=== PATIENT | female | born 1950 | race Caucasian/White ===

== ENCOUNTER → 2016-09-27 | Outpatient (CLI) | payer MEDICARE ==
[~2016-09-27] VITALS: Ht 165.2 cm; Wt 80.2 kg
[~2016-09-27] MED LIST: BASAGLAR K100 UNIT/1 SQ; BENADRYL25 M2 PO; BENTYL 20MG20 MG/TAB PO; CALCIUM CARBON650 M2 PO; CIPRO 500MG TA500 MG PO; CULTURELLE10 Billion PO; DARVOCET N 101 UDTAB PO; DICYCLOMINE20 MG PO; DOMPERIDONE10 MG/CAP PO; DOXYCYCLINE 10100 MG PO; EFFEXOR-XR150 MG PO; ELAVIL100 MG PO; FEMARA PO; FENTANYL 75MCG TD; FLEXERIL 1010 MG/TAB PO; GABAPENTIN TAB600 MG PO; GLUCOPHAGE XR500 M1 PO; HCTZ 25MG TAB25 MG PO; LYRICA 150MG C150 MG PO; MULTIPLE VITAMI1 CAP PO; NORCO 325 MG-7.1 TAB PO; OMEGA-3 FISH1000 MG PO; PHARMASSURE ZIN50 MG PO; PHENERGAN 25 TA25 MG PO; PRINIVIL5 MG PO; PROVENTIL0.09 MG/A1 IH; TAMOXIFEN CITRA20 MG PO; TOPROL XL100 MG PO; TYLENOL 500MG500 MG PO; TYLENOL PM EXT240 ML PO; TYLENOL PM EXTR1 TA1 PO; VITAMIN D31000 IU PO; XIFAXAN200 MG PO; ZOMETA4 MG/100 M IV; [UNRECOGNIZED DRUG - CODE] PO; [UNRECOGNIZED DRUG - OTHER] PO
[2016-09-27 06:56] VITALS: BP 142/71; PULSE 65
[2016-09-27 07:53] VITALS: BP 134/61; PULSE 67
[2016-09-27 07:54] VITALS: BP 141/66; PULSE 71
[2016-09-27 07:55] VITALS: BP 142/56; PULSE 70
[2016-09-27 07:56] VITALS: BP 140/72; PULSE 71
== END ==
LOC: COL.CARD 05:45
DX: R07.9 Chest pain, unspecified (principal); E11.9 Type 2 diabetes mellitus without complications; C79.81 Secondary malignant neoplasm of breast; C80.1 Malignant (primary) neoplasm, unspecified; I10 Essential (primary) hypertension; I49.9 Cardiac arrhythmia, unspecified
CPT/HCPCS: A9502; J2785

== ENCOUNTER → 2016-10-12 | Outpatient (CLI) | payer MEDICARE, BC | LOC: COL.RAD 11:00 | DX: R27.0 Ataxia, unspecified (principal); Z85.3 Personal history of malignant neoplasm of breast | CPT/HCPCS: Q9967 ==

== ENCOUNTER 2016-10-15 10:51 | Outpatient (CLI) | payer MEDICARE, BC ==
[2005-09-04 11:41] VITALS: BP 111/65
[2016-10-15] VITALS (8 sets, daily range): BP systolic 108–161; BP diastolic 49–85; PULSE 60–71; TEMP 99.3
[~2016-10-15] VITALS: Ht 165.1 cm; Wt 92.0 kg
[~2016-10-15 10:51] MED LIST changes: -FENTANYL 75MCG TD; -[UNRECOGNIZED DRUG - CODE] PO
[2016-10-15 13:43] LABS: CEREBROSPINAL TUBE #4; CSF APPEARANCE CLEAR; CSF COLOR COLORLESS
== END 2016-10-15 14:25 | disposition home or self-care (01) ==
LOC: COL.RAD 10:51
PROVIDERS: Family Medicine
DX: C50.919 Malignant neoplasm of unspecified site of unspecified female breast (principal); R27.0 Ataxia, unspecified; Z97.8 Presence of other specified devices

== ENCOUNTER 2016-10-25 08:35 | Outpatient (CLI) | payer MEDICARE ==
[2005-09-04 11:41] VITALS: BP 111/65
[~2016-10-25] VITALS: Ht 165.1 cm; Wt 94.1 kg
[2016-10-25] VITALS (8 sets, daily range): BP systolic 110–136; BP diastolic 57–67; PULSE 57–70
[2016-10-25] MEDS ORDERED: [UNRECOGNIZED DRUG - CODE] PO (09:01)
[2016-10-25] MEDS ORDERED: FENTANYL 75MCG TD (09:02)
== END 2016-10-25 13:20 | disposition home or self-care (01) ==
LOC: COL.RAD 08:35
DX: C79.81 Secondary malignant neoplasm of breast (principal); C80.1 Malignant (primary) neoplasm, unspecified

== ENCOUNTER → 2017-06-03 | Outpatient (CLI) | payer MEDICARE, BC ==
[~2017-06-03] MED LIST changes: +FENTANYL 75MCG TD; +[UNRECOGNIZED DRUG - CODE] PO
== END ==
LOC: COL.RAD 08:00
DX: C50.411 Malignant neoplasm of upper-outer quadrant of right female breast (principal); J34.89 Other specified disorders of nose and nasal sinuses; E11.9 Type 2 diabetes mellitus without complications; R41.3 Other amnesia
CPT/HCPCS: Q9967

== ENCOUNTER → 2017-07-09 | Outpatient (CLI) | payer MEDICARE, BC | LOC: COL.VAS 14:16 | DX: M79.89 Other specified soft tissue disorders (principal); Z85.3 Personal history of malignant neoplasm of breast; Z90.10 Acquired absence of unspecified breast and nipple; I82.409 Acute embolism and thrombosis of unspecified deep veins of unspecified lower extremity ==

== ENCOUNTER 2017-08-09 14:00 | Outpatient (RCR) | payer MEDICARE, BC | END 2017-08-13 | LOC: WSPT | DX: G62.9 Polyneuropathy, unspecified (principal); G11.9 Hereditary ataxia, unspecified; Z91.81 History of falling | CPT/HCPCS: G8978-GP; G8979-GP; G8980-GP ==

== ENCOUNTER → 2017-12-25 | Outpatient (CLI) | payer MEDICARE, BC | LOC: COL.RAD 11:30 | DX: C50.911 Malignant neoplasm of unspecified site of right female breast (principal); R41.89 Other symptoms and signs involving cognitive functions and awareness | CPT/HCPCS: Q9967 ==

== ENCOUNTER 2018-04-25 14:31 | Inpatient (IN) | payer MEDICARE, BC ==
[~2018-04-25] VITALS: Ht 165.1 cm; Wt 78.9 kg
[~2018-04-25 14:31] MED LIST changes: +FENTANYL 100MCG TD; -FENTANYL 75MCG TD
[2018-04-25 15:43] LABS: MEAN CELL VOLUME 119 fl (80.0-100.0); MEAN CORPUSCULAR HGB CONC 32 g/dl (33.0-37.0); RED BLOOD COUNT 1.83 M/mm3 (4.10-5.30); REDCELL DISTRIBUTION WIDTH-CV 18.2 % (11.5-14.5)
[2018-04-25 15:53] LABS: ALBUMIN 2.7 gm/dL (3.5-5.0); BILIRUBIN,TOTAL 0.3 mg/dL (0.0-1.0); CREATININE, serum 1.01 mg/dL (0.52-1.25); POTASSIUM 3.4 mmol/L (3.4-5.0); TOTAL PROTEIN 6.9 gm/dL (6.4-8.2)
[2018-04-25 15:58] LABS: COLLECTION METHOD CLEAN CATCH
[2018-04-25 16:01] LABS: HEMATOCRIT 21.7 % (37.0-47.0); MEAN CORPUSCULAR HEMOGLOBIN 38 pg (27.0-31.0)
[2018-04-25 16:03] LABS: PLATELET COUNT 28 K/mm3 (130-400)
[2018-04-25 16:11] LABS: BAND 2 % (0-10); HYPOCHROMIA 2+; LYMPHOCYTE 60 % (20.0-51.0); MICROCYTOSIS 1+; MYELOCYTE 1 % (0-0); NEUTROPHILS 36 % (42.0-75.2); POIKILOCYTOSIS 1+; POLYCHROMASIA 1+
[2018-04-25 16:12] LABS: PLATELET ESTIMATE DECREASED (NORMAL); TEAR DROP CELLS 1+
[2018-04-25 16:15] LABS: MUCOUS Present /lpf; PH 5 (5-8); SQUAMOUS EPITHELIAL None Seen /hpf; URINE APPEARANCE Cloudy; URINE BACTERIA None Seen /hpf; URINE BILIRUBIN Negative (NEGATIVE); URINE BLOOD 3+ (NEGATIVE); URINE COLOR Yellow; URINE GLUCOSE Negative (NEGATIVE); URINE KETONE Negative (NEGATIVE); URINE LEUKOCYTE ESTERASE Negative (NEGATIVE); URINE NITRATE Negative (NEGATIVE); URINE PROTEIN(semi-quant) 2+ (NEGATIVE); URINE RBC >50 /hpf
--- NOTE | 2018-04-25 18:56 | NUR ---
report to Akua VINSON.
[2018-04-25 19:17] VITALS: BP 132/56; PULSE 74; TEMP 98.4
[2018-04-26] VITALS (19 sets, daily range): BP systolic 92–131; BP diastolic 39–549; PULSE 63–71; TEMP 97.5–99
[2018-04-26] MEDS ORDERED: LANTUS100 U/ML SQ (07:35)
--- NOTE | 2018-04-26 07:50 | NUR ---
Blood ended at 0735. Both units of PRBCs and unit of platelets all infused. Patient tolerated well. Blood pressure improved throughout transfusions. No other needs reported/observed.
--- NOTE | 2018-04-26 08:14 | NUR ---
Assessmetn completed, alert/oriented, vital signs stable, reports baseline chornic pain 07/02, replaced Duragesic patch as ordered, Her blood transfusion just finished up and she tolerated well, she reports bloody urine for 2 days/ I have not observed any urine as of yet this morning, heart RRR/ distal pulses are palpable and lungs CTA/ no resp.difficulty noted, present at bedside, will wait for further orders from
--- NOTE | 2018-04-26 10:43 | NUR ---
Plan to return home. OSVALDO met with patient and in room. Patient reports that she uses the wheelchair daily. Kameron is her care support and her son and daughter are the DPOA-HC. Peterson reports that her PCP is Dr. Loyd but also sees Dr. Dang and Dr. Bustamante. Patient reports that they are awaiting [facility] unit to become available at [facility] for them to move into. Patient indicated that she is currently attending Physical therapy. Action: OSVALDO educated of resources, no additonal needs identified.
--- NOTE | 2018-04-26 14:45 | NUR ---
Report given to KAREL Tenorio and she is assuming care at this time for the rest of this shift
--- NOTE | 2018-04-26 17:10 | NUR ---
REPORT RECIEVED FROM KAREL PINEDA. PATIENT RESTING IN BED WITH PRESENT AT THE BEDSIDE. PATIENT IS A&O. VSS. TELE IN PLACE. GENERALIZED WEAKNESS NOTED. PATIENT STATES THAT SHE HAS DYSPNEA WITH EXERTION, BUT DENIES COMPLAINTS OF SHORTNESS OF BREATH. ALL LUNG PEREZ CLEAR UPON AUSCULTATION. BOWEL SOUNDS ACTIVE ALL FOUR QUADRANTS. PATIENT TOLERATING FOOD & LIQUIDS WITHOUT ANY COMPLAINTS OF N/V. POSITIVE PEDAL PULSES EQUAL BILATERALLY. CAP REFILL <3 SECONDS. OLD HEALING ULCER TO RIGHT JOE NOTED. RIGHT JOE ULCER SCAB INTACT AND RAN. INGE CATH TO LEFT CHEST WITH IV FLUIDS INFUSING VIA PUMP AT 50 MLS/HR. CALL LIGHT WITHIN REACH. PATIENT DENIES ANY NEEDS AT THIS TIME.
--- NOTE | 2018-04-26 18:30 | NUR ---
PATIENT CALLED OUT REQUESTING PAIN MEDICATION. PATIENT GIVEN 1 TABLET OF NORCO 7.5MG FOR ABDOMINAL PAIN RATED AT A 5/10 ON A 0-10 SCALE. NO OTHER NEEDS AT THIS TIME. REPORT GIVEN TO LD TRIPP.
[2018-04-27] VITALS (7 sets, daily range): BP systolic 92–117; BP diastolic 39–54; PULSE 57–73; TEMP 97.5–98.8
--- NOTE | 2018-04-27 06:18 | NUR ---
Patient rested well overnight. Patient is alert and oriented, answers questions appropriately. at bedside. Urine has been intermittently bloody overnight, but light blood and clear. Patient requested one PRN norco at HS, administered per order. IVF infusing per order. Patient has denied further needs at this time, call light within reach.
[2018-04-27 07:18] LABS: MEAN CORPUSCULAR HGB CONC 33 g/dl (33.0-37.0); MEAN PLATELET VOLUME 12.5 fl (7.4-10.4); RED BLOOD COUNT 2.51 M/mm3 (4.10-5.30); REDCELL DISTRIBUTION WIDTH-CV 23.6 % (11.5-14.5)
[2018-04-27 07:33] LABS: HEMATOCRIT 26.9 % (37.0-47.0); HEMOGLOBIN 8.9 g/dl (12.5-16.0); MEAN CELL VOLUME 107 fl (80.0-100.0); MEAN CORPUSCULAR HEMOGLOBIN 35 pg (27.0-31.0); PLATELET COUNT 35 K/mm3 (130-400)
--- NOTE | 2018-04-27 08:00 | NUR ---
PATIENT DROWSY AND RESTING IN BED THIS MORNING WITH ASLEEP IN THE CHAIR. PATIENT IS A&O. GENERALIZED WEAKNESS NOTED. VSS. TELE IN PLACE. BOWEL SOUNDS ACTIVE ALL FOUR QUADRANTS. PATIENT TOLERATING FOOD & LIQUIDS WITHOUT COMPLAINTS OF N/V. POSITIVE PEDAL PULSES EQUAL BILATERALLY. OLD HEALING SCABBED ULCER TO RIGHT JOE. ULCER RAN WITH SCAB INTACT. PORTACATH TO LEFT CHEST WITH IV FLUIDS INFUSING VIA IV PUMP. NON-PITTING EDEMA TO BUE NOTED. CALL LIGHT WITHIN REACH. BREAKFAST REFUSED. PATIENT DENIES ANY NEEDS AT THIS TIME.
[2018-04-27 08:08] LABS: LYMPHOCYTE 81 % (20.0-51.0); NEUTROPHILS 19 % (42.0-75.2)
[2018-04-27 08:10] LABS: ANISOCYTOSIS 1+; PLATELET ESTIMATE DECREASED (NORMAL)
--- NOTE | 2018-04-27 11:07 | NUR ---
PATIENT CALLED OUT REQUESTING MEDICATION FOR PAIN. PATIENT GIVEN PRN DOSE OF NORCO. WILL CONTINUE TO MONITOR.
--- NOTE | 2018-04-27 19:15 | NUR ---
PATIENT REQUESTED PAIN MEDICATION DURING SHIFT REPORT. PATIENT GIVEN 1 TABLET OF PRN NORCO. REPORT GIVEN TO KAREL JONES.
--- NOTE | 2018-04-27 21:00 | NUR ---
Patient awake, alert and oriented x3. Spouse at bedside. Reviewed HS meds with patient. Has IVF infusing at 50cc/hr to left Port. On telemetry in SR. Restricted right arm. Has a quarter size purple bruise to right villasenor, good pedal pulses noted. Lungs are clear bilaterally. Has Fentanyl patch to left scapula. Urine yellow, no nicholas blood noted at this time.
--- NOTE | 2018-04-27 23:39 | NUR ---
Medicated with [place] 7.5mg 1 tab now. Patient reports her pain 5/10 generalized throughout her body.
[2018-04-28 04:08] VITALS: BP 114/53; PULSE 58; TEMP 97.8
--- NOTE | 2018-04-28 07:15 | NUR ---
DR.DEVINE GUERRERO. WILL CHECK BACK LATER. PATIENT MAY POSSIBLY DISCHARGE HOME LATER TODAY.
[2018-04-28 07:30] VITALS: BP 115/50; PULSE 62; TEMP 98
[2018-04-28 11:33] VITALS: BP 90/40; PULSE 59; TEMP 98.1
--- NOTE | 2018-04-28 12:07 | NUR ---
First visit from the line staker. No needs right now.
[2018-04-28 15:38] VITALS: BP 100/59; PULSE 69; TEMP 98.3
[2018-04-28] MEDS ORDERED: DOXYCYCLINE 10100 MG PO (18:32)
--- NOTE | 2018-04-28 19:45 | NUR ---
Reviewed discharge instructions with patient and spouse. RX for Doxycycline sent with patient, dose for tonight given to patient at this time. Has own auto w/c for discharge.
--- NOTE | 2018-04-28 19:50 | NUR ---
Discharged via her own auto w/c to private car, accompanied by spouse. Copies of discharge instructions sent with patient as well as belongings.
== END 2018-04-28 19:50 | disposition home or self-care (01) | DRG 690 ==
LOC: COL.ER 14:31 → SURG 17:21
PROVIDERS: Emergency Medicine; ADMIT Urology
DX: N30.01 Acute cystitis with hematuria (principal); D61.818 Other pancytopenia; C79.51 Secondary malignant neoplasm of bone; B96.20 Unspecified Escherichia coli [E. coli] as the cause of diseases classified elsewhere; C50.919 Malignant neoplasm of unspecified site of unspecified female breast
CPT/HCPCS: 86644; J7030; J7050; P9016; P9035

== ENCOUNTER 2018-05-05 16:00 | Outpatient (RCR) | payer MEDICARE, BC ==
[~2018-05-05 16:00] MED LIST changes: +LANTUS100 U/ML SQ
[2018-06-01] MEDS ORDERED: [UNRECOGNIZED DRUG - CODE] PO (17:26)
[2018-06-01] MEDS ORDERED: PRESERVISION1 SGL PO (17:29)
[2018-06-01] MEDS ORDERED: CELEXA10 MG PO (17:35)
[2018-06-01] MEDS ORDERED: K-DUR 10 MEQ T10 MEQ PO (17:36)
== END 2018-06-01 | disposition home or self-care (01) ==
LOC: WSC
DX: G11.9 Hereditary ataxia, unspecified (principal)
CPT/HCPCS: G8978-GP; G8979-GP

== ENCOUNTER 2018-06-01 16:27 | Inpatient (IN) | payer MEDICARE, BC ==
[~2018-06-01] VITALS: Ht 165.1 cm; Wt 77.9 kg
[2018-06-01] MEDS ORDERED: [UNRECOGNIZED DRUG - CODE] PO (17:26)
[2018-06-01] MEDS ORDERED: PRESERVISION1 SGL PO (17:29)
[2018-06-01] MEDS ORDERED: CELEXA10 MG PO (17:35)
[2018-06-01] MEDS ORDERED: K-DUR 10 MEQ T10 MEQ PO (17:36)
[2018-06-01 17:45] LABS: BASO % 0.3 % (0.0-2.0); EOS # 0.1 (0.0-0.7); EOS % 0.6 % (0-4.0); GRAN # 6.3 (1.4-6.5); GRAN % 69.2 % (42.2-75.2); LYMPH # 1.7 (1.2-3.4); LYMPH % 18.9 % (20.0-51.0); MEAN CELL VOLUME 113 fl (80.0-100.0); MEAN CORPUSCULAR HEMOGLOBIN 36 pg (27.0-31.0); MEAN CORPUSCULAR HGB CONC 32 g/dl (33.0-37.0); MEAN PLATELET VOLUME 12.1 fl (7.4-10.4); MONO % 10.8 % (1.7-9.3); PLATELET COUNT 96 K/mm3 (130-400); RED BLOOD COUNT 3.03 M/mm3 (4.10-5.30); REDCELL DISTRIBUTION WIDTH-CV 17.4 % (11.5-14.5)
[2018-06-01 17:47] LABS: HEMATOCRIT 34.2 % (37.0-47.0)
[2018-06-01 17:51] LABS: INR 1.3 (0.8-3.0)
[2018-06-01 17:56] LABS: ALANINE AMINOTRANSFERASE 20 U/L (9-52); ALBUMIN 2.8 gm/dL (3.5-5.0); ALKALINE PHOSPHATASE 150 U/L (50-136); ANION GAP 8 mmol/L (7-16); AST,SGOT 31 U/L (15-37); BILIRUBIN,TOTAL 0.5 mg/dL (0.0-1.0); BLOOD UREA NITROGEN 23 mg/dL (7-17); CALCIUM 8.1 mg/dL (8.4-10.2); CARBON DIOXIDE 30 mmol/L (22-30); CHLORIDE 99 mmol/L (98-107); CREATININE, serum 1.07 mg/dL (0.52-1.25); GLUCOSE 179 mg/dL (74-106); POTASSIUM 3.7 mmol/L (3.4-5.0); SODIUM 137 mmol/L (137-145); TOTAL PROTEIN 6.4 gm/dL (6.4-8.2)
[2018-06-01 18:13] LABS: TROPONIN-I < 0.012 ng/mL (0.000-0.035)
[2018-06-01 20:07] LABS: COLLECTION METHOD CLEAN CATCH
[2018-06-01 20:24] LABS: MUCOUS Present /lpf; PH 6 (5-8); SQUAMOUS EPITHELIAL None Seen /hpf; URINE APPEARANCE Cloudy; URINE BACTERIA Rare /hpf; URINE BILIRUBIN Negative (NEGATIVE); URINE BLOOD Negative (NEGATIVE); URINE COLOR Yellow; URINE GLUCOSE Negative (NEGATIVE); URINE KETONE Negative (NEGATIVE); URINE LEUKOCYTE ESTERASE 2+ (NEGATIVE); URINE NITRATE Positive (NEGATIVE); URINE PROTEIN(semi-quant) 1+ (NEGATIVE); URINE UROBILINOGEN >=4.0 mg/dL (NEGATIVE)
--- NOTE | 2018-06-01 21:20 | NUR ---
Pt arrived to room 317, transferred per stretcher by ED staff. Pt awake, alert, cooperative c cares. Portacath accessed to L chest, patent. Tele in place. Family at bedside. Pt/family oriented to room, unit policies et current POC. Questions invited et answered, pt/family verbalized understanding. Call light in reach, will continue c admit process.
[2018-06-01 21:37] VITALS: BP 109/44; PULSE 69; TEMP 99.3
[2018-06-02] VITALS (8 sets, daily range): BP systolic 90–115; BP diastolic 47–55; PULSE 67–98; TEMP 97.9–102.1
[2018-06-02 07:05] LABS: CALCIUM 7.8 mg/dL (8.4-10.2); CREATININE, serum 0.79 mg/dL (0.52-1.25); POTASSIUM 3.3 mmol/L (3.4-5.0)
[2018-06-02 07:06] LABS: BASO % 0.5 % (0.0-2.0); EOS # 0.1 (0.0-0.7); EOS % 1.7 % (0-4.0); GRAN # 4.2 (1.4-6.5); LYMPH # 1.6 (1.2-3.4); LYMPH % 24.8 % (20.0-51.0); MEAN CELL VOLUME 113 fl (80.0-100.0); MEAN CORPUSCULAR HEMOGLOBIN 36 pg (27.0-31.0); MEAN CORPUSCULAR HGB CONC 32 g/dl (33.0-37.0); MEAN PLATELET VOLUME 11.2 fl (7.4-10.4); MONO # 0.6 (0.1-0.6); MONO % 8.7 % (1.7-9.3); PLATELET COUNT 80 K/mm3 (130-400); RED BLOOD COUNT 2.76 M/mm3 (4.10-5.30); REDCELL DISTRIBUTION WIDTH-CV 17.4 % (11.5-14.5)
--- NOTE | 2018-06-02 07:30 | NUR ---
Bedside shift report received from KAREL Victoria. Pt in bed resting wit hhusband at bedside. Will continue to monitor.
[2018-06-02 07:54] LABS: HEMATOCRIT 31.3 % (37.0-47.0)
--- NOTE | 2018-06-02 11:06 | NUR ---
Assessment charted. Pt c/o pain to back but it has improved since this am. Pt resting in bed, awake and alert but only oriented to self. states he has metastatic cancer that is affecting her cognition. Temp elevated, notified hospitalist. Will continue to monitor.
--- NOTE | 2018-06-02 11:28 | NUR ---
First visit from the plc engineer. No needs right now.
--- NOTE | 2018-06-02 19:52 | NUR ---
Pt done well over shift. Family visitng and long discusion about current stay and plan of care. Pt resting in bed, ordered supper, bedside shift report given to nightshift nruse who will resume care
--- NOTE | 2018-06-02 22:00 | NUR ---
PT HAD RECIEVED SUPPER LATE DUE TO KITCHEN ERROR. PT DIDNT HAVE NEED FOR PAIN MED AT THIS TIME STATED IT WAS VERY MINAMAL IF ANY. TEMPERATURE THIS HS WAS SLIGHTLY ELEVATED AT 99.8. FLUIDS INFUSING WITHOUT ISSUE. WILL CONTINUE TO MONITOR
[2018-06-03] VITALS (7 sets, daily range): BP systolic 102–122; BP diastolic 54–76; PULSE 73–89; TEMP 97.8–98.6
--- NOTE | 2018-06-03 06:30 | NUR ---
PT HAD UNEVENTFUL NOC. APPEARED TO HAVE SLEPT WELL. NO ISSUES OR CONSERNS VOICED THIS SHIFT.
[2018-06-03 07:04] LABS: BASO % 0.2 % (0.0-2.0); EOS # 0.1 (0.0-0.7); EOS % 2.7 % (0-4.0); GRAN # 2.7 (1.4-6.5); GRAN % 62.8 % (42.2-75.2); LYMPH # 1.1 (1.2-3.4); LYMPH % 25.6 % (20.0-51.0); MEAN CELL VOLUME 113 fl (80.0-100.0); MEAN CORPUSCULAR HGB CONC 32 g/dl (33.0-37.0); MEAN PLATELET VOLUME 11.4 fl (7.4-10.4); MONO # 0.4 (0.1-0.6); MONO % 8.2 % (1.7-9.3); PLATELET COUNT 78 K/mm3 (130-400); RED BLOOD COUNT 2.58 M/mm3 (4.10-5.30); REDCELL DISTRIBUTION WIDTH-CV 16.9 % (11.5-14.5)
[2018-06-03 07:05] LABS: HEMATOCRIT 29.1 % (37.0-47.0); HEMOGLOBIN 9.2 g/dl (12.5-16.0); MEAN CORPUSCULAR HEMOGLOBIN 36 pg (27.0-31.0)
[2018-06-03 07:20] LABS: CALCIUM 7.5 mg/dL (8.4-10.2); CREATININE, serum 0.74 mg/dL (0.52-1.25); POTASSIUM 3.3 mmol/L (3.4-5.0)
--- NOTE | 2018-06-03 09:15 | NUR ---
Assessment complete. Pt is alert but forgettful. Denies having any pain at this time. Breathing is even and unlabored on 2L via NC. Tele on. L chest portacath has good blood return, flushes easily, remains free of complications, and is CDI. Pt has family members at the bedside; all questions answered. Pt is sitting up in the bed watching TV at this time and she denies further needs. Call light within reach, will continue to monitor.
--- NOTE | 2018-06-03 12:07 | NUR ---
Food allergies clarrified with dietitian and family.
--- NOTE | 2018-06-03 17:03 | NUR ---
SW met with patient and about discharge planning. Patient lives at home with her . Patient's PCP is Dr Loyd and she obtains prescriptions from [facility]. Patient uses a wheelchair for mobility but no other DME is reported and patient does not use any home health services. It has been reported that patient's has been caring for patient but has recently been diagnosed with dementia. Patient's reported they are working on moving to [facility] independent living. SW spoke with patient about the recommendation for SNF. Patient is agreeable and chose [facility]. Patient's signed choice form. SW faxed referral to [facility] and will follow up in the morning.
--- NOTE | 2018-06-03 18:14 | NUR ---
Pt has been resting on and off throughout the day. has remained at the bedside; all questions answered. Pt is sitting up in the bed eating her dinner at this time and she denies further needs. Call light within reach.
--- NOTE | 2018-06-03 19:13 | NUR ---
Report given to KAREL Briggs.
--- NOTE | 2018-06-03 23:27 | NUR ---
Completed medication administration and assessment; PT tolerated all care well; No acute complaints of pain or discomfort during assessment; PT had not void at time of assessment; Castillo removed at approximately 1730; PT A&Ox4, HRRR, BS active x4, no edema at time of assessment, LCTAB with bilateral diminished bases; No further needs at time of exit; PT placed in a comfortable position with call light within reach; Will continue to monitor. CDA
[2018-06-04 03:29] VITALS: BP 107/48; PULSE 86; TEMP 99.2
--- NOTE | 2018-06-04 03:49 | NUR ---
PT resting well in bed; no further concerns assessed or verbalized at time of rounds; PT in comfortable position in bed with call light in reach; Will continue to monitor. CDA
[2018-06-04 06:10] LABS: BASO % 0.5 % (0.0-2.0); EOS # 0.1 (0.0-0.7); EOS % 2.5 % (0-4.0); GRAN # 2.4 (1.4-6.5); GRAN % 60.3 % (42.2-75.2); LYMPH # 1.1 (1.2-3.4); LYMPH % 27.2 % (20.0-51.0); MEAN CELL VOLUME 113 fl (80.0-100.0); MEAN CORPUSCULAR HGB CONC 32 g/dl (33.0-37.0); MEAN PLATELET VOLUME 11.1 fl (7.4-10.4); MONO # 0.3 (0.1-0.6); MONO % 8.7 % (1.7-9.3); PLATELET COUNT 78 K/mm3 (130-400); RED BLOOD COUNT 2.59 M/mm3 (4.10-5.30); REDCELL DISTRIBUTION WIDTH-CV 16.6 % (11.5-14.5)
[2018-06-04 06:15] LABS: HEMATOCRIT 29.3 % (37.0-47.0); HEMOGLOBIN 9.3 g/dl (12.5-16.0); MEAN CORPUSCULAR HEMOGLOBIN 36 pg (27.0-31.0)
--- NOTE | 2018-06-04 06:23 | NUR ---
Received verbal order from RUDY Lan to reinsert cota catheter d/t retained urine of approximately 540ml per bladder scan. CDA
[2018-06-04 06:43] LABS: CALCIUM 7.7 mg/dL (8.4-10.2); CREATININE, serum 0.71 mg/dL (0.52-1.25)
--- NOTE | 2018-06-04 06:45 | NUR ---
Placed 18F cota with approximately 450ml output immediately; PT tolerated cota placement well. No further needs at this time. CDA
--- NOTE | 2018-06-04 06:47 | NUR ---
Report given to KAREL Fisher. CDA
[2018-06-04 07:23] VITALS: BP 117/54; PULSE 91; TEMP 99.5
[2018-06-04] MEDS ORDERED: MACROBID 1100 MG/CAP PO (09:45)
[2018-06-04] MEDS ORDERED: TOPROL XL 25MG25 MG PO (09:48)
[2018-06-04] MEDS ORDERED: FLOMAX 0.40.4 MG/CAP PO (09:57)
[2018-06-04] MEDS ORDERED: CLARITIN 1010 MG/TAB PO (09:57)
[2018-06-04] MEDS ORDERED: NORCO 325 MG-7.1 TAB PO (10:08)
[2018-06-04] MEDS ORDERED: FENTANYL 100MCG TD (10:08)
--- NOTE | 2018-06-04 11:07 | NUR ---
SW attended clinical rounds to discuss discharge. Patient will discharge today to [facility] for skilled. SW presented IM to patient and . Patient's signed but did not request a copy. OSVALDO contacted Katie from [facility] about discharge, arranged transportation for 1pm, and faxed discharge orders.
--- NOTE | 2018-06-04 13:19 | NUR ---
Pt discharged at this time. Left chest portacath deaccessed per protocol, heparin allergy clarified with pt, okay to give per pt. Report to called Jairo Boateng, nurse. Pt escorted out via wheelchair with jairo staff.
== END 2018-06-04 13:22 | DRG 690 ==
LOC: COL.ER 16:27 → MEDICAL 19:05
PROVIDERS: Emergency Medicine; Nurse Practitioner; Nurse Practitioner Family; ADMIT Family Medicine
DX: N39.0 Urinary tract infection, site not specified (principal); D61.818 Other pancytopenia; E46 Unspecified protein-calorie malnutrition; C79.31 Secondary malignant neoplasm of brain; B96.20 Unspecified Escherichia coli [E. coli] as the cause of diseases classified elsewhere; I10 Essential (primary) hypertension; Z85.3 Personal history of malignant neoplasm of breast; R33.9 Retention of urine, unspecified; E87.6 Hypokalemia; I95.9 Hypotension, unspecified; R09.02 Hypoxemia; G89.29 Other chronic pain; G62.9 Polyneuropathy, unspecified; Z68.28 Body mass index [BMI] 28.0-28.9, adult
CPT/HCPCS: 99222-AI; 99233-AI; J1335; J1644; J1940; J7030

== ENCOUNTER 2018-06-27 10:47 | Emergency (ER) | payer MEDICARE, BC ==
[2005-09-04 11:41] VITALS: BP 111/65
[~2018-06-27] VITALS: Ht 165.1 cm; Wt 77.3 kg
[~2018-06-27 10:47] MED LIST changes: +CELEXA10 MG PO; +CLARITIN 1010 MG/TAB PO; +FLOMAX 0.40.4 MG/CAP PO; +K-DUR 10 MEQ T10 MEQ PO; +MACROBID 1100 MG/CAP PO; +PRESERVISION1 SGL PO; +TOPROL XL 25MG25 MG PO
[2018-06-27 10:50] VITALS: TEMP 98.6
[2018-06-27 11:45] LABS: BASO % 0.3 % (0.0-2.0); EOS % 0.3 % (0-4.0); GRAN # 2.5 (1.4-6.5); GRAN % 64.8 % (42.2-75.2); INR 2.3 (0.8-3.0); LYMPH # 0.9 (1.2-3.4); LYMPH % 24.8 % (20.0-51.0); MEAN CELL VOLUME 109 fl (80.0-100.0); MEAN CORPUSCULAR HGB CONC 31 g/dl (33.0-37.0); MONO # 0.4 (0.1-0.6); MONO % 9.5 % (1.7-9.3); PLATELET COUNT 74 K/mm3 (130-400); PROTHROMBIN TIME 26.7 SECONDS (9.7-12.8); RED BLOOD COUNT 2.17 M/mm3 (4.10-5.30); REDCELL DISTRIBUTION WIDTH-CV 15.6 % (11.5-14.5)
[2018-06-27 11:46] LABS: HEMATOCRIT 23.7 % (37.0-47.0); HEMOGLOBIN 7.4 g/dl (12.5-16.0); MEAN CORPUSCULAR HEMOGLOBIN 34 pg (27.0-31.0)
[2018-06-27 11:50] LABS: ALBUMIN 2.3 gm/dL (3.5-5.0); BILIRUBIN,TOTAL 0.2 mg/dL (0.0-1.0); CALCIUM 7.6 mg/dL (8.4-10.2); CREATININE, serum 0.75 (0.52-1.25); POTASSIUM 3.5 mmol/L (3.4-5.0); TOTAL PROTEIN 5.7 gm/dL (6.4-8.2)
[2018-06-27] MEDS ORDERED: ESTRACE0.1 MG/GM VG (13:58)
[2018-06-27 14:15] VITALS: BP 114/53; PULSE 90
== END 2018-06-27 14:15 | disposition home or self-care (01) ==
LOC: COL.ER 10:47
PROVIDERS: Emergency Medicine
DX: N81.0 Urethrocele (principal); D64.9 Anemia, unspecified

== ENCOUNTER 2018-06-27 13:55 | Outpatient (RCR) | payer MEDICARE, BC ==
[2005-09-04 11:41] VITALS: BP 111/65
[~2018-06-27] VITALS: Ht 165.1 cm; Wt 77.2 kg
[2018-06-27] MEDS ORDERED: ESTRACE0.1 MG/GM VG (13:58)
--- NOTE | 2018-06-27 14:06 | NUR ---
Report received from ART Sanders nurse.
[2018-06-27 14:37] VITALS: BP 117/63; PULSE 82; TEMP 98.9
[2018-06-27 14:53] VITALS: BP 104/49; PULSE 80; TEMP 99.1
[2018-06-27 15:08] VITALS: BP 121/46; PULSE 76; TEMP 98.4
[2018-06-27 15:38] VITALS: BP 109/64; PULSE 85; TEMP 98.8
[2018-06-27 16:07] VITALS: BP 112/61; PULSE 85; TEMP 98.7
== END 2018-06-27 16:33 | disposition home or self-care (01) ==
LOC: EUO 14:00
DX: Z45.2 Encounter for adjustment and management of vascular access device (principal)
CPT/HCPCS: J1644; J7050; P9016

== ENCOUNTER 2018-08-13 13:30 | Outpatient (RCR) | payer MEDICARE, BC ==
[2005-09-04 11:41] VITALS: BP 111/65
[2018-08-13] VITALS (9 sets, daily range): BP systolic 103–122; BP diastolic 52–66; PULSE 72–86; TEMP 97.9–98
[~2018-08-13] VITALS: Ht 165.1 cm; Wt 84.1 kg
[~2018-08-13 13:30] MED LIST changes: +ESTRACE0.1 MG/GM VG
[2018-08-13] MEDS ORDERED: FENTANYL 100MCG TD (14:38)
[2018-08-13] MEDS ORDERED: NORCO 325 MG-7.1 TAB PO (14:38)
[2018-08-13] MEDS ORDERED: CLARITIN 1010 MG/TAB PO (14:40)
[2018-08-13] MEDS ORDERED: TOPROL XL 25MG25 MG PO (14:41)
== END 2018-08-13 17:24 | disposition home or self-care (01) ==
LOC: EUO 13:30
DX: C50.411 Malignant neoplasm of upper-outer quadrant of right female breast (principal); D63.0 Anemia in neoplastic disease
CPT/HCPCS: J7050; P9040

== ENCOUNTER 2018-09-29 10:52 | Emergency (ER) | payer MEDICARE, BC ==
[2005-09-04 11:41] VITALS: BP 111/65
[2018-09-29] VITALS (7 sets, daily range): BP systolic 100–130; BP diastolic 56–69; PULSE 79–87; TEMP 98.4–99.9
[~2018-09-29] VITALS: Ht 165.1 cm; Wt 75.0 kg
[2018-09-29 11:51] LABS: INR 1.1 (0.8-3.0); PROTHROMBIN TIME 13.3 SECONDS (9.7-12.8)
[2018-09-29 12:04] LABS: ALBUMIN 3.1 gm/dL (3.5-5.0); BILIRUBIN,TOTAL 0.4 mg/dL (0.0-1.0); CALCIUM 8.9 mg/dL (8.4-10.2); CREATININE, serum 0.72 (0.52-1.25); POTASSIUM 4.2 mmol/L (3.4-5.0); TOTAL PROTEIN 6.6 gm/dL (6.4-8.2)
[2018-09-29 12:19] LABS: MEAN CELL VOLUME 104 fl (80.0-100.0); MEAN CORPUSCULAR HGB CONC 31 g/dl (33.0-37.0); MEAN PLATELET VOLUME 13.3 fl (7.4-10.4); PLATELET COUNT 59 K/mm3 (130-400); RED BLOOD COUNT 2.22 M/mm3 (4.10-5.30)
[2018-09-29 12:25] LABS: HEMOGLOBIN 7.2 g/dl (12.5-16.0); MEAN CORPUSCULAR HEMOGLOBIN 32 pg (27.0-31.0)
[2018-09-29 12:48] LABS: COLLECTION METHOD CATHETER
[2018-09-29 13:04] LABS: PH 7 (5-8); SQUAMOUS EPITHELIAL None Seen /hpf; URINE APPEARANCE Clear; URINE BACTERIA None Seen /hpf; URINE BILIRUBIN Negative (NEGATIVE); URINE BLOOD Negative (NEGATIVE); URINE COLOR Straw; URINE GLUCOSE Negative (NEGATIVE); URINE KETONE Negative (NEGATIVE); URINE LEUKOCYTE ESTERASE Negative (NEGATIVE); URINE NITRATE Negative (NEGATIVE); URINE PROTEIN(semi-quant) Negative (NEGATIVE); URINE RBC None Seen /hpf; URINE UROBILINOGEN Negative (NEGATIVE)
[2018-09-29 13:06] LABS: ANISOCYTOSIS 2+; BAND 6 % (0-10); LYMPHOCYTE 56 % (20.0-51.0); NEUTROPHILS 34 % (42.0-75.2); PLATELET ESTIMATE DECREASED (NORMAL)
[2018-09-29 13:07] LABS: SCHISTOCYTES 2+; TEAR DROP CELLS 2+
== END 2018-09-29 18:06 | disposition home or self-care (01) ==
LOC: COL.ER 10:52
PROVIDERS: Emergency Medicine
DX: N93.9 Abnormal uterine and vaginal bleeding, unspecified (principal); D64.9 Anemia, unspecified; Z85.3 Personal history of malignant neoplasm of breast; Z90.710 Acquired absence of both cervix and uterus; Z90.49 Acquired absence of other specified parts of digestive tract
CPT/HCPCS: P9040

== ENCOUNTER 2018-10-15 13:00 | Outpatient (RCR) | payer MEDICARE, BC ==
[2005-09-04 11:41] VITALS: BP 111/65
[2018-10-15] VITALS (10 sets, daily range): BP systolic 94–120; BP diastolic 51–73; PULSE 70–80; TEMP 98–99
[~2018-10-15] VITALS: Ht 165.1 cm; Wt 78.0 kg
== END 2018-10-15 19:00 | disposition home or self-care (01) ==
LOC: EUO 13:00
DX: C50.411 Malignant neoplasm of upper-outer quadrant of right female breast (principal); D64.9 Anemia, unspecified
CPT/HCPCS: J1644; J7050; P9040

== ENCOUNTER → 2019-05-14 | Outpatient (CLI) | payer MEDICARE, BC ==
[~2019-05-14] MED LIST changes: +BENADRYL PO; +CALCIUM CARBON650 M2; +CELEXA 20MG20 MG/TAB PO; -CELEXA10 MG PO; +DOMPERIDONE PO; +EPA FISH OIL1 SGL PO; +FENTANYL 25 MCG TD; +IBRANCE100 MG PO; +LASIX 40MG TABL40 MG PO; +MASON NATURAL2000 IU; +MULTI VITAMINS1 TAB PO; +NITROSTAT0.4 MG/TAB SL; +NOVOLIN 70100 UNIT/2 SQ; +PROAIR HFA0.09 MG/AC IH; +THERATEARS SGL PO
== END ==
LOC: COL.RAD 05-04 11:30
DX: C50.411 Malignant neoplasm of upper-outer quadrant of right female breast (principal); R09.02 Hypoxemia; M89.9 Disorder of bone, unspecified; S22.41XA Multiple fractures of ribs, right side, initial encounter for closed fracture
CPT/HCPCS: Q9967

== ENCOUNTER 2019-05-26 08:00 | Outpatient (RCR) | payer MEDICARE, BC ==
[2005-09-04 11:41] VITALS: BP 111/65
[~2019-05-26] VITALS: Ht 165.1 cm; Wt 74.0 kg
[2019-05-26] VITALS (9 sets, daily range): BP systolic 104–144; BP diastolic 49–82; PULSE 73–80; TEMP 97.6–99
[2019-05-26] MEDS ORDERED: NOVOLIN R100 U/ML SQ (09:40)
--- NOTE | 2019-05-26 13:45 | NUR ---
BLOOD INFUSED, IV PORT FLUSHED BY ROXANA VINSON THEN REMOVED. PT UP IN ROOM, DISCHARGED VIA WHEELCHAIR WITH .
== END 2019-08-23 | disposition home or self-care (01) ==
LOC: EUO
DX: C50.411 Malignant neoplasm of upper-outer quadrant of right female breast (principal); D64.9 Anemia, unspecified
CPT/HCPCS: J1644; J7050; P9016

== ENCOUNTER 2019-07-06 12:22 | Inpatient (IN) | payer MEDICARE, BC ==
[~2019-07-06] VITALS: Ht 172.7 cm; Wt 75.0 kg
[2019-07-06] VITALS (245 sets, daily range): BP systolic 65–178; BP diastolic 30–83; PULSE 47–89; TEMP 97.7–98; O2SAT 90–100
[~2019-07-06 12:22] MED LIST changes: +NOVOLIN R100 U/ML SQ
[2019-07-06 12:49] LABS: INR 1.5 (0.8-3.0); PROTHROMBIN TIME 17.4 SECONDS (9.7-12.8)
[2019-07-06 12:50] LABS: MEAN CELL VOLUME 95 fl (80.0-100.0); MEAN CORPUSCULAR HEMOGLOBIN 28 pg (27.0-31.0); MEAN CORPUSCULAR HGB CONC 30 g/dl (33.0-37.0); PLATELET COUNT 74 K/mm3 (130-400); RED BLOOD COUNT 3.57 M/mm3 (4.10-5.30); REDCELL DISTRIBUTION WIDTH-CV 18.6 % (11.5-14.5)
[2019-07-06 12:54] LABS: HEMATOCRIT 33.9 % (37.0-47.0)
[2019-07-06 13:00] LABS: ALBUMIN 3.2 gm/dL (3.5-5.0); CALCIUM 8.3 mg/dL (8.4-10.2); CREATININE, serum 3.07 (0.52-1.25); POTASSIUM 5.6 mmol/L (3.4-5.0); TOTAL PROTEIN 6.4 gm/dL (6.4-8.2)
[2019-07-06 13:18] LABS: ANISOCYTOSIS 2+; BAND 30 % (0-10); LYMPHOCYTE 15 % (20.0-51.0); METAMYELOCYTE 6 % (0-0); MYELOCYTE 1 % (0-0); NEUTROPHILS 43 % (42.0-75.2); SCHISTOCYTES 1+; TROPONIN-I 0.131 ng/mL (0.000-0.035)
[2019-07-06 13:19] LABS: HYPOCHROMIA 1+; PLATELET ESTIMATE DECREASED (NORMAL); TEAR DROP CELLS 1+
[2019-07-06 14:00] LABS: C-REACTIVE PROTEIN 22.7 mg/dL (0.0-0.9)
--- NOTE | 2019-07-06 16:44 | NUR ---
Vancomycin Initial Dosing Pharmacy Note Ordering provider: Di Contreras MD Indication/duration: SEPTIC SHOCK Relevant comorbidities: metastatic breast cancer LABS: WBC 18.2, SCr 3.1, CrCl ~17 Recommendation: vancomycin dosed by levels Loading dose: vancomycin 1.5 grams Maintenance dose: determined by levels Trough goal: 15-20 ug/mL. random level 07/06
[2019-07-06 16:49] LABS: ARTERIAL BLOOD GAS PCO2 35.6 mmHg (35-45); ARTERIAL BLOOD GAS pH 7.33 (7.35-7.45)
[2019-07-06 16:50] LABS: ARTERIAL BLD GAS O2 SATURATION 98.2 % (92-100); ARTERIAL BLOOD GAS BASE EXCESS -6.6 (-2-2); ARTERIAL BLOOD GAS HCO3 18.5 meq/L (22-26); ARTERIAL BLOOD GAS PO2 125.4 mmHg (80-100)
[2019-07-06 16:59] LABS: COLLECTION METHOD CLEAN CATCH
[2019-07-06 17:11] LABS: BUDDING YEAST Present /hpf; HYALINE CAST >12 /lpf; MUCOUS Present /lpf; PH 5 (5-8); SQUAMOUS EPITHELIAL None Seen /hpf; URINE APPEARANCE Turbid; URINE BACTERIA Many /hpf; URINE BILIRUBIN Negative (NEGATIVE); URINE BLOOD 3+ (NEGATIVE); URINE COLOR Amber; URINE GLUCOSE Negative (NEGATIVE); URINE KETONE Negative (NEGATIVE); URINE LEUKOCYTE ESTERASE 1+ (NEGATIVE); URINE NITRATE Negative (NEGATIVE); URINE PROTEIN(semi-quant) 2+ (NEGATIVE); URINE RBC 20-50 /hpf
[2019-07-06 17:52] LABS: TRICYCLIC ANTIDEPRESS URINE POSITIVE
[2019-07-06 17:56] LABS: LACTATE DEHYDROGENASE 2070 U/L (313-618)
[2019-07-06 17:59] LABS: ALCOHOL(ethanol),MEDICAL < 10 mg/dL
[2019-07-06 18:37] LABS: CALCIUM 8.2 mg/dL (8.4-10.2); CREATININE, serum 2.79 (0.52-1.25); POTASSIUM 5.7 mmol/L (3.4-5.0)
--- NOTE | 2019-07-06 19:15 | NUR ---
Report given to Iris VINSON and care transfered.
[2019-07-06 19:58] LABS: POTASSIUM 5.3 mmol/L (3.4-5.0)
[2019-07-06 19:59] LABS: ACETAMINOPHEN < 10 ug/mL (10-30)
[2019-07-06 20:13] LABS: TROPONIN-I 0.784 ng/mL (0.000-0.035)
[2019-07-06 20:52] LABS: ARTERIAL BLD GAS O2 SATURATION 98.3 % (92-100); ARTERIAL BLD GAS TCO2 CT 17.6; ARTERIAL BLOOD GAS BASE EXCESS -5.6 (-2-2); ARTERIAL BLOOD GAS HCO3 16.8 meq/L (22-26); ARTERIAL BLOOD GAS PCO2 24.2 mmHg (35-45); ARTERIAL BLOOD GAS pH 7.46 (7.35-7.45)
[2019-07-06 20:53] LABS: ARTERIAL BLOOD GAS PO2 140.2 mmHg (80-100)
--- NOTE | 2019-07-07 00:48 | NUR ---
1917 - WHILE THIS RN IS RECEIVING REPORT FROM KAREL WHITEHEAD, PT WENT BRADYCARDIC AT 30'S. E CART PULLED, DR. ESPAÑA AT [facility] AND ORDERED ATROPINE 0.5 MG INITIALLY AND PT'S HR STILL MAINTANING AT 40'S SO THEN DR. ESPAÑA ORDRED REMAINING 0.5 MG OF ATROPINE TO BE GIVEN AT 1922. PT'S BP LOW 60S-80S, ON LEVOPHED (SEE IV DRIP TITATRAION) AND TITARTED ACCORDINGLY. PROPOPOL AND FENTANYL WAS PUT ON STANDBY ORDERED BY DR. ESPAÑA. CARDILOGY WAS ALSO CONSULTED AND NOTIFIED. EKG DONE WELL. 1932 - STAT POTASSIUM AND TROPONIN LAB ORDERED. 1941 - DR. NORWOOD AT BEDSIDE TO EVALUATE AND PT AND PERFORMED ECHO. PT'S EF AT 60-65% PER MD. 1951 - PT STARTED WAKING UP AND GETTING AGITATED, PROPOFOL AND FENTANYL RESTARTED AT CURRENT RATE ORDERD BY HOSPITALIST JOSE. 1999 - PT WAS DECIDED TO BE TRASNFERRED AT [facility] AND PT'S DAUGHTER SONY WAS UPDATED AND NOTIFIED BY HOSPITALIST JOSE AND AGREED WITH PLAN. 2012 - TROPONIN OF 0.78 REPORTED TO JOSE, FRONT END SPECIALIST. 2204 - PT WAS ACCEPTED TO [facility] AND REPORT WAS GIVEN TO ARNOL. KAREL. ALL QUESTIONS ANSWERED. PT GOING TO ROOM 3285. 2219 - EMS ARRIVED. 2236 - CALLED [facility] TO UPDATED PT IS READY FOR TRANSFER. ALSO, PT'S DAUGHTER SONY UPDATED WELL AND REQUESTED TO BE CALLED BY [facility] WAS MOM IS AT THEIR FACLITY WHICH WAS THEN RELAYED TO SHERRIE'S NURSE. 2239 - PT LEFT UNIT AND WAS TRANSFERRED TO [facility]IVING [facility].
[2019-07-07 10:03] LABS: PATHOLOGY DIFF REVIEW OK
== END 2019-07-06 22:40 | disposition critical access hospital (66) | DRG 871 ==
LOC: COL.ER 12:22 → ICU 15:07
PROVIDERS: Emergency Medicine; Hospitalist; Internal Medicine Pulmonary Disease; Nurse Practitioner Family; ADMIT Student in an Organized Health Care Education/Training Program
PROC: 0BH17EZ Insertion of Endotracheal Airway into Trachea, Via Natural or Artificial Opening (ICD-10-PCS; principal; 2019-07-06)
PROC: 5A1935Z Respiratory Ventilation, Less than 24 Consecutive Hours (ICD-10-PCS; 2019-07-06)
DX: A41.9 Sepsis, unspecified organism (principal); R65.21 Severe sepsis with septic shock; K72.00 Acute and subacute hepatic failure without coma; J96.20 Acute and chronic respiratory failure, unspecified whether with hypoxia or hypercapnia; N39.0 Urinary tract infection, site not specified; G93.40 Encephalopathy, unspecified; N17.9 Acute kidney failure, unspecified; I24.8 Other forms of acute ischemic heart disease; E87.1 Hypo-osmolality and hyponatremia; I44.7 Left bundle-branch block, unspecified; E11.9 Type 2 diabetes mellitus without complications; F32.9 Major depressive disorder, single episode, unspecified; E87.5 Hyperkalemia; D69.6 Thrombocytopenia, unspecified; D63.8 Anemia in other chronic diseases classified elsewhere; G89.3 Neoplasm related pain (acute) (chronic); E78.5 Hyperlipidemia, unspecified; Z85.3 Personal history of malignant neoplasm of breast; Z90.721 Acquired absence of ovaries, unilateral; Z98.51 Tubal ligation status; Z90.710 Acquired absence of both cervix and uterus; Z90.49 Acquired absence of other specified parts of digestive tract; S22.31XG Fracture of one rib, right side, subsequent encounter for fracture with delayed healing
CPT/HCPCS: 99223-AI; 99239; J0461; J0610; J1335; J1720; J1815; J2250; J2310; J2704; J3010; J3370; J7030; J7050; J7060

== ENCOUNTER → 2019-07-27 | Outpatient (CLI) | payer MEDICARE, BC | LOC: ZCOL.LAB 14:24 | DX: D69.6 Thrombocytopenia, unspecified (principal) ==

== ENCOUNTER 2019-09-04 09:49 | Inpatient (IN) | payer MEDICARE, BC ==
[~2019-09-04] VITALS: Ht 165.1 cm; Wt 68.0 kg
[2019-09-04 11:45] LABS: COLLECTION METHOD CLEAN CATCH
[2019-09-04 11:51] LABS: BASO % 0.4 % (0.0-2.0); GRAN # 1.8 (1.4-6.5); GRAN % 75.5 % (42.2-75.2); HEMOGLOBIN 10.2 g/dl (12.5-16.0); LYMPH # 0.4 (1.2-3.4); LYMPH % 18.6 % (20.0-51.0); MEAN CELL VOLUME 100 fl (80.0-100.0); MEAN CORPUSCULAR HEMOGLOBIN 31 pg (27.0-31.0); MEAN CORPUSCULAR HGB CONC 31 g/dl (33.0-37.0); MEAN PLATELET VOLUME 10.2 fl (7.4-10.4); MONO # 0.1 (0.1-0.6); MONO % 5.1 % (1.7-9.3); RED BLOOD COUNT 3.25 M/mm3 (4.10-5.30); REDCELL DISTRIBUTION WIDTH-CV 18.6 % (11.5-14.5)
[2019-09-04 11:53] LABS: HEMATOCRIT 32.6 % (37.0-47.0)
[2019-09-04 11:55] LABS: MUCOUS Present /lpf; PH 5 (5-8); SQUAMOUS EPITHELIAL 0-2 /hpf; URINE APPEARANCE Cloudy; URINE BACTERIA Many /hpf; URINE BILIRUBIN Negative (NEGATIVE); URINE BLOOD Negative (NEGATIVE); URINE COLOR Yellow; URINE GLUCOSE Negative (NEGATIVE); URINE KETONE Negative (NEGATIVE); URINE LEUKOCYTE ESTERASE 2+ (NEGATIVE); URINE NITRATE Negative (NEGATIVE); URINE PROTEIN(semi-quant) 1+ (NEGATIVE); URINE UROBILINOGEN >=4.0 mg/dL (NEGATIVE)
[2019-09-04 11:56] LABS: PLATELET COUNT 46 K/mm3 (130-400)
[2019-09-04 12:02] LABS: ALANINE AMINOTRANSFERASE 16 U/L (4-34); ALBUMIN 3.3 gm/dL (3.5-5.0); ALKALINE PHOSPHATASE 171 U/L (50-136); ANION GAP 6 mmol/L (7-16); AST,SGOT 32 U/L (15-37); BILIRUBIN,TOTAL 0.7 mg/dL (0.0-1.0); BLOOD UREA NITROGEN 15 mg/dL (7-17); C-REACTIVE PROTEIN 1.8 mg/dL (0.0-0.9); CALCIUM 8.8 mg/dL (8.4-10.2); CARBON DIOXIDE 28 mmol/L (22-30); CHLORIDE 102 mmol/L (98-107); CREATININE, serum 0.62 (0.52-1.25); GLUCOSE 159 mg/dL (74-106); LIPASE 36 U/L (23-300); SODIUM 136 mmol/L (137-145); TOTAL PROTEIN 6.8 gm/dL (6.4-8.2)
[2019-09-04 12:06] LABS: INR 1.3 (0.8-3.0); PROTHROMBIN TIME 14.1 SECONDS (9.7-12.8)
[2019-09-04 12:12] LABS: TROPONIN-I < 0.012 ng/mL (0.000-0.035)
--- NOTE | 2019-09-04 14:00 | NUR ---
Pt up to room 352, pt assisted to bed, pt is A&O, on room air. Pt has own electric WC. Will complete admission process. Oriented to room, provided with ice water.
[2019-09-04 16:12] VITALS: BP 114/56; PULSE 80; TEMP 98.6
[2019-09-04 18:30] VITALS: TEMP 99.4
--- NOTE | 2019-09-04 19:22 | NUR ---
Pt assessment completed and charted, roomair, alert and oriented, on tele. Has red, irritated, rough skin under her left brest and right armpit. Pt was complaining about chill, so adjusted the room temp, gave her a blanket and checked the temp, 99.4 f. Pt's is on her bedside. No further needs at this time. Handover given KAREL Reyes.
--- NOTE | 2019-09-04 19:22 | NUR ---
Attempted to discuss allergies and medications with patient. Pt is unsure of what exactly she takes and when. This nurse got a list from [facility] that doesn't match completely with medication list in computer, pt unsure of where to get complete/updated copy, daughter does not have list. Pt unsure if she is on her "off or on schedule" for her chemo medication. Pharmacy called to discuss allergy list, patient has exhausting list of allergies that she also seems to take those meds. Dr. Zarco in to visit with patient and also discuss allergies and POC. Carolee called pt daughter who does not have list and stated he will attempt to contact [facility] in the morning for updated list. Pt unaware of which allergies are true allergies or need to come off list. Pharmacy updated on issue and receiving nurse, Amy VINSON also aware.
[2019-09-04 19:41] VITALS: BP 115/56; PULSE 94; TEMP 101.1
--- NOTE | 2019-09-04 20:00 | NUR ---
Received report from KAREL Altman. Pt currently sitting up in bed with family at her bedside. Pt also eating her dinner. Pt has her call light within reach and her bed is in lowet position.
--- NOTE | 2019-09-04 20:51 | NUR ---
Pt called out requesting something for pain. Pt was given her night medications as well as her pain medications at this time. Pt has her call light within reach and has no other compliants at this time.
--- NOTE | 2019-09-04 21:00 | NUR ---
Pt was assisted to the restroom by the aide. Pt urinated 900 output at this time. Pt urine did have a odor. Pt is currently back in bed at this time. She has her call light within reach.
[2019-09-05 00:16] VITALS: BP 101/49; PULSE 79; TEMP 99.2
--- NOTE | 2019-09-05 04:47 | NUR ---
Pt is currently sleeping in bed. Pt has her call light within reach at this time.
[2019-09-05 05:09] VITALS: BP 108/46; PULSE 70; TEMP 97.8
--- NOTE | 2019-09-05 07:17 | NUR ---
Reported off to KAREL Diaz. Pt currently sleeping in bed. Pt has her call light within reah and her bed is in lowest position.
--- NOTE | 2019-09-05 07:36 | NUR ---
Vancomycin Initial Dosing Pharmacy Note Ordering provider: Eric Burton MD Indication/duration: sepsis, bacteremia Relevant comorbidities: met. breast cancer LABS: WBC 2.4, SCr 0.62, CrCl 66, TMax 101.1. BC: E.coli, Urine: gram(-) rods Recommendation: vancomycin 15 mg/kg Maintenance dose: 1 gram every 12 hours Trough goal: 15-20 ug/mL. trough 09/06 @ 0030.
[2019-09-05 08:01] VITALS: BP 105/70; PULSE 73; TEMP 97.5
[2019-09-05 08:42] LABS: MEAN CELL VOLUME 101 fl (80.0-100.0); MEAN CORPUSCULAR HGB CONC 31 g/dl (33.0-37.0); MEAN PLATELET VOLUME 12.7 fl (7.4-10.4); RED BLOOD COUNT 2.79 M/mm3 (4.10-5.30); REDCELL DISTRIBUTION WIDTH-CV 18.6 % (11.5-14.5)
[2019-09-05 08:48] LABS: HEMATOCRIT 28.3 % (37.0-47.0); HEMOGLOBIN 8.7 g/dl (12.5-16.0); MEAN CORPUSCULAR HEMOGLOBIN 31 pg (27.0-31.0); PLATELET COUNT 42 K/mm3 (130-400)
[2019-09-05 08:56] LABS: CALCIUM 7.8 mg/dL (8.4-10.2); CREATININE, serum 0.53 (0.52-1.25); POTASSIUM 3.4 mmol/L (3.4-5.0)
[2019-09-05 10:08] LABS: ANISOCYTOSIS 3+; LYMPHOCYTE 54 % (20.0-51.0); NEUTROPHILS 46 % (42.0-75.2); PLATELET ESTIMATE DECREASED (NORMAL)
[2019-09-05 11:55] VITALS: BP 125/56; PULSE 86; TEMP 98.2
--- NOTE | 2019-09-05 13:42 | NUR ---
Chaplain danielson and offered support with patient.
--- NOTE | 2019-09-05 15:30 | NUR ---
Report received from KAREL Diaz. Care resumed at this time
[2019-09-05 16:06] VITALS: BP 114/65; PULSE 85; TEMP 98.4
--- NOTE | 2019-09-05 17:40 | NUR ---
Pt called RN into room stating that she was was having some swelling and pain to left upper thigh/lower buttock where she once had a pressure ulcer. Upon assessment, there is an area of erythema where there was once a pressure ulcer with light brown discoloration around it. Pt very tender to touch around healed pressure ulcer. No redness or heat noted. JAY Owens in room at this time and request for discoloration to be outlined along with the area of erythema.
--- NOTE | 2019-09-05 19:12 | NUR ---
Pt report received from jenny RN at bedside. Pt is resting in bed watchign tv and talking on her cell phone. Call light is at Pt side. No s/s of distress noted. Will continue to monitor.
--- NOTE | 2019-09-05 19:15 | NUR ---
Report given to KAREL Lind
[2019-09-05 20:00] VITALS: BP 141/61; PULSE 88; TEMP 99.2
[2019-09-06 00:21] VITALS: BP 107/55; PULSE 84; TEMP 98.6
--- NOTE | 2019-09-06 04:04 | NUR ---
Pt is currently resting in bed peacefully with eyes closed and no s/s of distress noted. Pt has remained in bed this shift watching tv, talking on her cell phone, and using her electornic devices to entertain herself. Pt remains A&Ox4 and is able to make her wants/needs known without difficulty. Pt has IV fluids and antibiiotics infusing at various times during the shift with no s/s of adverse antibiotic reactions noted and IV site showing no s/s of complications. Pt has call light within reach and personal items and beverage on bedside table within reach. Will continue to monitor.
[2019-09-06 04:43] VITALS: BP 127/63; PULSE 82; TEMP 98.4
--- NOTE | 2019-09-06 07:07 | NUR ---
Pt report given at bedside to dayshift RN. Pt resting peacefully with eyes closed and call light within reach.
[2019-09-06 07:43] VITALS: BP 137/71; PULSE 79; TEMP 97.8
[2019-09-06 07:51] LABS: MEAN CELL VOLUME 101 fl (80.0-100.0); MEAN CORPUSCULAR HGB CONC 31 g/dl (33.0-37.0); MEAN PLATELET VOLUME 10.3 fl (7.4-10.4); RED BLOOD COUNT 2.81 M/mm3 (4.10-5.30); REDCELL DISTRIBUTION WIDTH-CV 18.2 % (11.5-14.5)
[2019-09-06 07:53] LABS: HEMATOCRIT 28.4 % (37.0-47.0); HEMOGLOBIN 8.7 g/dl (12.5-16.0); MEAN CORPUSCULAR HEMOGLOBIN 31 pg (27.0-31.0); PLATELET COUNT 38 K/mm3 (130-400)
[2019-09-06 08:00] LABS: CALCIUM 8.2 mg/dL (8.4-10.2); CREATININE, serum 0.45 (0.52-1.25); POTASSIUM 3.9 mmol/L (3.4-5.0)
[2019-09-06 09:07] LABS: BAND 2 % (0-10); LYMPHOCYTE 54 % (20.0-51.0); NEUTROPHILS 36 % (42.0-75.2)
[2019-09-06 09:08] LABS: ANISOCYTOSIS 2+; HYPOCHROMIA 3+; PLATELET ESTIMATE DECREASED (NORMAL)
[2019-09-06 12:01] VITALS: BP 122/57; PULSE 76; TEMP 98.3
--- NOTE | 2019-09-06 15:56 | NUR ---
Plan: To return home at [facility] independent living. Assessment: SW met with patient and spouse. Patient reports that she was having issues with walking and has a walker for in the home and a motorized chair outside of the home. Patient reports that her PCP is Dr. Amador. Patient reports that she likes [facility] for medications. Spouse Kameron and DTR Antonia . Patient reports that she does not have a DPOA but does have a living will. Patient indicated that they have home health services with [facility]. Patient denies any care concerns. Action: Sw educated about supports in the community. No additional concerns identified.
[2019-09-06 15:59] VITALS: BP 112/52; PULSE 79; TEMP 98.2
[2019-09-06 20:28] VITALS: BP 118/60; PULSE 81; TEMP 98.7
--- NOTE | 2019-09-06 22:01 | NUR ---
PT IN BED WITH HOB ELEVATED TO 60 DEGREE ANGLE. PT HAS C/O CONSTIPATION. PT STATED THAT LAST BOWEL MOVEMENT WAS ON SATURDAY AND THAT SHE TAKES MIRALAX AT HS AND IF NO RESULTS SHE TAKES AGAIN IN THE AM. NO C/O PAIN OR DISCOMFORT. CALL LIGHT WITHIN REACH.
[2019-09-07] VITALS (7 sets, daily range): BP systolic 108–134; BP diastolic 51–68; PULSE 64–81; TEMP 97.4–98.7
--- NOTE | 2019-09-07 06:14 | NUR ---
PT HAD NO ISSUES THIS SHIFT. PT AWAKE MOST OF NIGHT, BUT DID FALL ASLEEP AROUND 0400. PT HAD NO C/O PAIN OR DISCOMFORT. CALL LIGHT WITHIN REACH.
[2019-09-07 06:52] LABS: MEAN CELL VOLUME 100 fl (80.0-100.0); MEAN CORPUSCULAR HGB CONC 30 g/dl (33.0-37.0); MEAN PLATELET VOLUME 13.3 fl (7.4-10.4); RED BLOOD COUNT 2.91 M/mm3 (4.10-5.30); REDCELL DISTRIBUTION WIDTH-CV 18.1 % (11.5-14.5)
[2019-09-07 07:03] LABS: HEMATOCRIT 29.2 % (37.0-47.0); HEMOGLOBIN 8.8 g/dl (12.5-16.0); MEAN CORPUSCULAR HEMOGLOBIN 30 pg (27.0-31.0)
[2019-09-07 07:04] LABS: CALCIUM 8.1 mg/dL (8.4-10.2); CREATININE, serum 0.52 (0.52-1.25); PLATELET COUNT 39 K/mm3 (130-400); POTASSIUM 3.7 mmol/L (3.4-5.0)
--- NOTE | 2019-09-07 08:33 | NUR ---
Assessment completed, alert/oriented, vital signs stable/ has been afebrile, denies any pain or discomfort, heart RRR/ Murmur noted, lungs CTA/ no resp.difficulty noted, patient is scheduled for CT and US of her left hip today to assess for possible abscess from old wound, patient tolerating IV abx, she is sitting up finishin breakfast at this time, denies other needs currently
[2019-09-07 08:35] LABS: BAND 35 % (0-10); EOSINOPHIL 1 % (0-4); LYMPHOCYTE 35 % (20.0-51.0); NEUTROPHILS 18 % (42.0-75.2); PLATELET ESTIMATE DECREASED (NORMAL)
[2019-09-07 08:37] LABS: ANISOCYTOSIS 1+; HYPOCHROMIA 1+
--- NOTE | 2019-09-07 09:56 | NUR ---
OSVALDO met with the patient to revisit the discharge plan. The patient plans to return to [facility] with [facility]. OSVALDO faxed updates to [facility]. Will continue to [facility].
--- NOTE | 2019-09-07 20:18 | NUR ---
At time of assessment, patient is awake in bed watching TV. She is alert and oriented and complains of pain 5/10 which is chronic for her. Schedule [place] administered at this time. No edema is present. Heart sounds are normal/regular, lungs clear in all lobes. Left hip wound is the size of a pencil eraser and has minimal drainage. No redness or edema is present around the wound and it is covered with an aquacell. No new concerns at this time. Will continue to monitor.
[2019-09-08 03:16] VITALS: BP 129/64; PULSE 73; TEMP 97.7
--- NOTE | 2019-09-08 06:05 | NUR ---
Patient has had an uneventful night. No new concerns at this time.
[2019-09-08 06:52] LABS: MEAN CELL VOLUME 100 fl (80.0-100.0); MEAN CORPUSCULAR HGB CONC 31 g/dl (33.0-37.0); RED BLOOD COUNT 2.79 M/mm3 (4.10-5.30); REDCELL DISTRIBUTION WIDTH-CV 18.1 % (11.5-14.5)
[2019-09-08 06:56] LABS: HEMATOCRIT 27.8 % (37.0-47.0); HEMOGLOBIN 8.7 g/dl (12.5-16.0); MEAN CORPUSCULAR HEMOGLOBIN 31 pg (27.0-31.0)
[2019-09-08 06:57] LABS: PLATELET COUNT 39 K/mm3 (130-400)
[2019-09-08 07:10] LABS: CALCIUM 8.5 mg/dL (8.4-10.2); CREATININE, serum 0.44 (0.52-1.25); POTASSIUM 4.1 mmol/L (3.4-5.0)
[2019-09-08 07:46] VITALS: BP 127/57; PULSE 80; TEMP 98.1
[2019-09-08 08:22] LABS: BAND 40 % (0-10); EOSINOPHIL 1 % (0-4); LYMPHOCYTE 37 % (20.0-51.0); METAMYELOCYTE 1 % (0-0); NEUTROPHILS 12 % (42.0-75.2); PLATELET ESTIMATE DECREASED (NORMAL)
[2019-09-08 08:23] LABS: ANISOCYTOSIS 1+; HYPOCHROMIA 2+
--- NOTE | 2019-09-08 08:29 | NUR ---
report given to KAREL Rendon.
[2019-09-08 11:55] VITALS: BP 118/55; PULSE 71; TEMP 98.7
[2019-09-08 16:02] VITALS: BP 139/65; PULSE 68; TEMP 98.8
--- NOTE | 2019-09-08 19:20 | NUR ---
Patient have rash below left breast. left hip wound dressing was changed.
[2019-09-08 19:54] VITALS: BP 131/53; PULSE 73; TEMP 99
--- NOTE | 2019-09-08 20:38 | NUR ---
Pt assessment completed. Pt alert and oriented x4. Pt states she is having generalized pain that is rated 6/10. Scheduled norco given. INT to left forearm patent and free of complications. Portacath to left chest patent with good blood return. Mepilex to left hip clean, dry and intact. Pt stated wound was cleaned and new mepilex was applied by previous shift. Pt denies any other needs at this time. Call light within reach. Will continue to monitor.
[2019-09-08 23:28] VITALS: BP 109/50; PULSE 68; TEMP 97.6
[2019-09-09 03:47] VITALS: BP 116/69; PULSE 67; TEMP 97.8
--- NOTE | 2019-09-09 05:36 | NUR ---
Pt had uneventful night. Pt rested well in bed throughout night. Complaints of generalized pain during the night. Scheduled pain medication given per orders. INT to left forearm without complications. Portacath to left chest without complications. Pt denies any other needs at this time. Call light within reach. Will continue to monitor.
[2019-09-09 07:37] VITALS: BP 111/48; PULSE 72; TEMP 98.1
[2019-09-09 07:45] LABS: MEAN CELL VOLUME 99 fl (80.0-100.0); MEAN CORPUSCULAR HGB CONC 31 g/dl (33.0-37.0); MEAN PLATELET VOLUME 11.9 fl (7.4-10.4); RED BLOOD COUNT 2.87 M/mm3 (4.10-5.30); REDCELL DISTRIBUTION WIDTH-CV 18.2 % (11.5-14.5)
[2019-09-09 07:49] LABS: HEMATOCRIT 28.5 % (37.0-47.0); HEMOGLOBIN 8.9 g/dl (12.5-16.0); MEAN CORPUSCULAR HEMOGLOBIN 31 pg (27.0-31.0); PLATELET COUNT 41 K/mm3 (130-400)
[2019-09-09 08:10] LABS: CALCIUM 8.6 mg/dL (8.4-10.2); CREATININE, serum 0.47 (0.52-1.25); POTASSIUM 4.1 mmol/L (3.4-5.0)
[2019-09-09 09:02] LABS: BAND 22 % (0-10); LYMPHOCYTE 44 % (20.0-51.0); NEUTROPHILS 23 % (42.0-75.2); PLATELET ESTIMATE DECREASED (NORMAL)
[2019-09-09 09:03] LABS: ANISOCYTOSIS 1+; HYPOCHROMIA 1+
[2019-09-09 11:50] VITALS: BP 105/68; PULSE 79; TEMP 98.9
--- NOTE | 2019-09-09 15:10 | NUR ---
SW met with the patient to present the IM form. The patient understood and signed the form. A copy was provided to the patient and the original was placed in the chart. Will continue to monitor.
[2019-09-09 16:07] VITALS: BP 113/59; PULSE 72; TEMP 98.7
[2019-09-09 19:14] VITALS: BP 132/59; PULSE 66; TEMP 98.7
--- NOTE | 2019-09-09 20:00 | NUR ---
Received report from KAREL Diaz. A/O x4. C/O generalized pain, RT shoulder/arm, below left breast, left hip pain. Meds adminsitered as ordered including pain meds. Ice pack provided as requested to apply to pain to rt shoulder/arm. Under left breast excoriation, prescribed ointment applied. Left hip abscess dressing changed, cleansed, with minimal light brown drainage. Port intact, flushed, INT to LFA intact, flushed, dressing CDI. Tele monitor in place. Needs met. Call light within reach.
[2019-09-09 23:30] VITALS: BP 100/44; PULSE 69; TEMP 98.3
[2019-09-10 04:45] VITALS: BP 120/48; PULSE 70; TEMP 98.1
--- NOTE | 2019-09-10 06:19 | NUR ---
Pt uneventful during this shift.Call light within reach.
--- NOTE | 2019-09-10 06:58 | NUR ---
Report given to KAREL Michaels.
[2019-09-10 07:04] LABS: BASO % 0.4 % (0.0-2.0); EOS % 0.8 % (0-4.0); GRAN # 1.1 (1.4-6.5); GRAN % 41.5 % (42.2-75.2); LYMPH # 1.2 (1.2-3.4); LYMPH % 47.1 % (20.0-51.0); MEAN CELL VOLUME 99 fl (80.0-100.0); MEAN CORPUSCULAR HGB CONC 31 g/dl (33.0-37.0); MONO # 0.3 (0.1-0.6); MONO % 9.8 % (1.7-9.3); RED BLOOD COUNT 3.04 M/mm3 (4.10-5.30); REDCELL DISTRIBUTION WIDTH-CV 18.2 % (11.5-14.5)
[2019-09-10 07:08] LABS: HEMOGLOBIN 9.2 g/dl (12.5-16.0); MEAN CORPUSCULAR HEMOGLOBIN 30 pg (27.0-31.0)
[2019-09-10 07:09] LABS: PLATELET COUNT 41 K/mm3 (130-400)
[2019-09-10 07:12] LABS: CALCIUM 8.8 mg/dL (8.4-10.2); CREATININE, serum 0.48 (0.52-1.25); POTASSIUM 4.2 mmol/L (3.4-5.0)
[2019-09-10 07:47] VITALS: BP 128/55; PULSE 78; TEMP 98.1
[2019-09-10 08:22] VITALS: BP 114/56
--- NOTE | 2019-09-10 11:01 | NUR ---
SW attended clinical rounds with the team. The patient is to tentatively discharge home today, 09/09 with [facility] providing PT/OT/Nursing services. SW to fax discharge orders. There are no additional needs at this time.
[2019-09-10 11:21] VITALS: BP 105/50; PULSE 72; TEMP 98.1
[2019-09-10] MEDS ORDERED: OMNICEF 300MG300 MG PO (12:36)
[2019-09-10] MEDS ORDERED: DOXYCYCLINE 10100 MG PO (12:36)
--- NOTE | 2019-09-10 15:17 | NUR ---
[facility] CALLED AND CONFIRMED THAT PORT TO BE DE-ACCESSED BEFORE DISCHARGE. PT ALLERGIC TO HEPARIN THUS NOT HEP LOCKED. NO BLEEDING OR COMPLICATIONS NOTED. DISCHARGE TO HOME ACCOMPANIED BY IN OWN ELECTRIC WHEELCHAIR
== END 2019-09-10 15:20 | disposition home or self-care (01) | DRG 871 ==
LOC: COL.ER 09:49 → MEDICAL 12:06
PROVIDERS: Emergency Medicine; Internal Medicine; Physician Assistant; Student in an Organized Health Care Education/Training Program; ADMIT Family Medicine
DX: A41.51 Sepsis due to Escherichia coli [E. coli] (principal); D61.810 Antineoplastic chemotherapy induced pancytopenia; N39.0 Urinary tract infection, site not specified; E44.0 Moderate protein-calorie malnutrition; L02.416 Cutaneous abscess of left lower limb; G89.29 Other chronic pain; D89.9 Disorder involving the immune mechanism, unspecified; D69.6 Thrombocytopenia, unspecified; D63.8 Anemia in other chronic diseases classified elsewhere; T45.1X5A Adverse effect of antineoplastic and immunosuppressive drugs, initial encounter; R53.81 Other malaise; F32.9 Major depressive disorder, single episode, unspecified; Z87.898 Personal history of other specified conditions; Z85.3 Personal history of malignant neoplasm of breast; Z98.51 Tubal ligation status; Z90.49 Acquired absence of other specified parts of digestive tract; Z90.710 Acquired absence of both cervix and uterus; Z90.721 Acquired absence of ovaries, unilateral; Z68.24 Body mass index [BMI] 24.0-24.9, adult
CPT/HCPCS: 99223-AI; 99232-AI; 99233-AI; 99239; J0696; J1447; J1815; J2185; J3370; J7030; J7050

== ENCOUNTER 2020-03-17 13:01 | Outpatient (RCR) | payer MEDICARE, BC ==
[2005-09-04 11:41] VITALS: BP 111/65
[~2020-03-17] VITALS: Ht 165.1 cm; Wt 67.2 kg
[2020-03-17] VITALS (9 sets, daily range): BP systolic 116–156; BP diastolic 64–88; PULSE 76–83; TEMP 98.1–98.8
[~2020-03-17 13:01] MED LIST changes: +OMNICEF 300MG300 MG PO
== END 2020-03-17 17:44 | disposition home or self-care (01) ==
LOC: EUO 13:01
DX: C50.411 Malignant neoplasm of upper-outer quadrant of right female breast (principal); C79.51 Secondary malignant neoplasm of bone; D64.9 Anemia, unspecified
CPT/HCPCS: J7050; P9040

== ENCOUNTER → 2020-04-27 | Outpatient (CLI) | payer MEDICARE, BC | LOC: COL.VAS 10:00 | DX: C50.411 Malignant neoplasm of upper-outer quadrant of right female breast (principal); M79.89 Other specified soft tissue disorders ==

== ENCOUNTER 2020-05-12 13:00 | Outpatient (RCR) | payer MEDICARE, BC ==
[2005-09-04 11:41] VITALS: BP 111/65
[2020-05-12] VITALS (11 sets, daily range): BP systolic 93–122; BP diastolic 48–80; PULSE 77–85; TEMP 98.4–98.7
[~2020-05-12] VITALS: Ht 165.1 cm; Wt 70.5 kg
[2020-05-12] MEDS ORDERED: AFINITOR2.5 MG PO (13:55)
--- NOTE | 2020-05-12 20:19 | NUR ---
pt tolerated transfusions well without any adverse reactions. pt's port flushed with ns flushes x 2 and heparin flush prior to discontinuing port. pt to exit via motorized wheelchair. no concerns at time of departure.
== END 2020-05-12 20:00 | disposition home or self-care (01) ==
LOC: EUO 13:00
DX: C50.411 Malignant neoplasm of upper-outer quadrant of right female breast (principal); C79.51 Secondary malignant neoplasm of bone; D64.9 Anemia, unspecified
CPT/HCPCS: J1644; J7050; P9040

== ENCOUNTER 2020-06-23 07:30 | Outpatient (RCR) | payer MEDICARE, BC ==
[2005-09-04 11:41] VITALS: BP 111/65
[~2020-06-23] VITALS: Ht 165.1 cm; Wt 66.8 kg
[2020-06-23] VITALS (9 sets, daily range): BP systolic 110–127; BP diastolic 44–60; PULSE 82–89; TEMP 97.9–98.2
[~2020-06-23 07:30] MED LIST changes: +AFINITOR2.5 MG PO
[2020-06-23] MEDS ORDERED: BENADRYL25 M2 PO (09:19)
[2020-06-23] MEDS ORDERED: LANTUS100 U/ML SQ (09:22)
[2020-06-23] MEDS ORDERED: PHENERGAN 25 TA25 MG PO (09:23)
[2020-06-23] MEDS ORDERED: VISION FORMULA1 EAC1 PO (09:24)
[2020-06-23] MEDS ORDERED: DECADRON 0.0.1 MG/ML PO (09:37)
[2020-06-23] MEDS ORDERED: NOVOLOG 100U100 U/M1 SQ (10:10)
[2020-06-23] MEDS ORDERED: K-DUR20 MEQ PO (10:13)
[2020-06-23] MEDS ORDERED: OCTAGAM 10%100 MG/ML IV (10:14)
--- NOTE | 2020-06-23 13:05 | NUR ---
PAC DC'd after flushing with 20ml of NS. Pt tolerated transfusions without issue. She is assisted back into electric wheelchair, uses restroom, then is escorted to waiting room to wait for H transport.
[2021-02-06] MEDS ORDERED: FLEXERIL 1010 MG/TAB PO (09:36)
== END 2020-06-23 13:05 | disposition home or self-care (01) ==
LOC: EUO 07:30
DX: C50.411 Malignant neoplasm of upper-outer quadrant of right female breast (principal); C79.51 Secondary malignant neoplasm of bone; D64.9 Anemia, unspecified; Z95.9 Presence of cardiac and vascular implant and graft, unspecified
CPT/HCPCS: J7050; P9040

== ENCOUNTER → 2020-08-04 | Outpatient (CLI) | payer MEDICARE, BC ==
[~2020-08-04] MED LIST changes: +AFINITOR5 MG PO; +DECADRON 0.0.1 MG/ML PO; +DIFLUCAN150 MG PO; +K-DUR20 MEQ PO; +NOVOLOG 100U100 U/M1 SQ; +OCTAGAM 10%100 MG/ML IV; +VISION FORMULA1 EAC1 PO
== END ==
LOC: COL.RAD 12:36
DX: M85.80 Other specified disorders of bone density and structure, unspecified site (principal); C50.411 Malignant neoplasm of upper-outer quadrant of right female breast; C79.51 Secondary malignant neoplasm of bone
CPT/HCPCS: J3301; Q9967

== ENCOUNTER 2020-08-10 13:19 | Emergency (ER) | payer MEDICARE, BC ==
[2005-09-04 11:41] VITALS: BP 111/65
[~2020-08-10] VITALS: Ht 165.1 cm; Wt 65.9 kg
[~2020-08-10 13:19] MED LIST changes: -AFINITOR5 MG PO; -DIFLUCAN150 MG PO
[2020-08-10 13:44] VITALS: TEMP 99.8
[2020-08-10 14:17] LABS: BASO % 0.4 % (0.0-2.0); EOS # 0.1 (0.0-0.7); EOS % 2.5 % (0-4.0); GRAN # 1.6 (1.4-6.5); LYMPH # 0.8 (1.2-3.4); LYMPH % 27.3 % (20.0-51.0); MEAN CELL VOLUME 92 fl (80.0-100.0); MEAN CORPUSCULAR HGB CONC 29 g/dl (33.0-37.0); MEAN PLATELET VOLUME 10.5 fl (7.4-10.4); MONO # 0.4 (0.1-0.6); MONO % 12.4 % (1.7-9.3); PLATELET COUNT 84 K/mm3 (130-400); RED BLOOD COUNT 3.37 M/mm3 (4.10-5.30); REDCELL DISTRIBUTION WIDTH-CV 17.4 % (11.5-14.5)
[2020-08-10 14:19] LABS: HEMATOCRIT 30.9 % (37.0-47.0); MEAN CORPUSCULAR HEMOGLOBIN 27 pg (27.0-31.0)
[2020-08-10 14:35] LABS: ALBUMIN 3.5 gm/dL (3.5-5.0); BILIRUBIN,TOTAL 0.2 mg/dL (0.0-1.0); CALCIUM 8.1 mg/dL (8.4-10.2); CREATININE, serum 0.49 (0.52-1.25); POTASSIUM 3.9 mmol/L (3.4-5.0); TOTAL PROTEIN 7.1 gm/dL (6.4-8.2)
[2020-08-10 15:08] LABS: INR 1.1 (0.8-3.0); PROTHROMBIN TIME 12.7 SECONDS (9.7-12.8)
[2020-08-10 15:14] LABS: TROPONIN-I 0.017 ng/mL (0.000-0.035)
[2020-08-10 15:20] LABS: PARTIAL THROMBOPLASTIN TIME 37.3 SECONDS (26.0-37.0)
[2020-08-10 17:01] VITALS: BP 125/76; PULSE 84
[2021-02-06] MEDS ORDERED: FLEXERIL 1010 MG/TAB PO (09:36)
== END 2020-08-10 17:16 | disposition home or self-care (01) ==
LOC: COL.ER 13:19
PROVIDERS: Emergency Medicine
DX: I44.7 Left bundle-branch block, unspecified (principal); R06.02 Shortness of breath; E11.40 Type 2 diabetes mellitus with diabetic neuropathy, unspecified; E11.65 Type 2 diabetes mellitus with hyperglycemia; C50.919 Malignant neoplasm of unspecified site of unspecified female breast; C79.51 Secondary malignant neoplasm of bone; Z79.4 Long term (current) use of insulin
CPT/HCPCS: Q9967

== ENCOUNTER 2020-08-26 15:16 | Emergency (ER) | payer MEDICARE, BC ==
[2005-09-04 11:41] VITALS: BP 111/65
[~2020-08-26] VITALS: Ht 165.1 cm; Wt 65.9 kg
[2020-08-26 16:11] LABS: BASO % 0.8 % (0.0-2.0); EOS # 0.1 (0.0-0.7); EOS % 3.1 % (0-4.0); GRAN # 1.3 (1.4-6.5); GRAN % 49.1 % (42.2-75.2); LYMPH % 37.8 % (20.0-51.0); MEAN CELL VOLUME 93 fl (80.0-100.0); MEAN CORPUSCULAR HGB CONC 29 g/dl (33.0-37.0); MEAN PLATELET VOLUME 11.2 fl (7.4-10.4); MONO # 0.2 (0.1-0.6); MONO % 8.8 % (1.7-9.3); PLATELET COUNT 77 K/mm3 (130-400); RED BLOOD COUNT 2.97 M/mm3 (4.10-5.30); REDCELL DISTRIBUTION WIDTH-CV 18.5 % (11.5-14.5)
[2020-08-26 16:12] LABS: ALBUMIN 3.3 gm/dL (3.5-5.0); BILIRUBIN,TOTAL 0.2 mg/dL (0.0-1.0); CALCIUM 8.6 mg/dL (8.4-10.2); CREATININE, serum 0.74 (0.52-1.25); HEMATOCRIT 27.7 % (37.0-47.0); MEAN CORPUSCULAR HEMOGLOBIN 27 pg (27.0-31.0); TOTAL PROTEIN 6.9 gm/dL (6.4-8.2)
[2020-08-26 16:35] LABS: C-REACTIVE PROTEIN 0.6 mg/dL (0.0-0.9)
[2020-08-26 17:03] LABS: COLLECTION METHOD CLEAN CATCH
[2020-08-26 17:32] LABS: PH 6 (5-8); SQUAMOUS EPITHELIAL 0-2 /hpf; URINE APPEARANCE Hazy; URINE BACTERIA None Seen /hpf; URINE BILIRUBIN Negative (NEGATIVE); URINE BLOOD 3+ (NEGATIVE); URINE COLOR Yellow; URINE GLUCOSE Negative (NEGATIVE); URINE KETONE Negative (NEGATIVE); URINE LEUKOCYTE ESTERASE Negative (NEGATIVE); URINE NITRATE Negative (NEGATIVE); URINE PROTEIN(semi-quant) Negative (NEGATIVE); URINE RBC >50 /hpf; URINE UROBILINOGEN Negative (NEGATIVE)
[2020-08-26] MEDS ORDERED: DIFLUCAN150 MG PO (18:13)
[2020-08-26 19:25] VITALS: BP 121/67; PULSE 84; TEMP 98.6
[2021-02-06] MEDS ORDERED: FLEXERIL 1010 MG/TAB PO (09:36)
== END 2020-08-26 19:25 | disposition home or self-care (01) ==
LOC: COL.ER 15:16
PROVIDERS: Family Medicine
DX: N93.9 Abnormal uterine and vaginal bleeding, unspecified (principal); C79.81 Secondary malignant neoplasm of breast; E11.40 Type 2 diabetes mellitus with diabetic neuropathy, unspecified; E11.311 Type 2 diabetes mellitus with unspecified diabetic retinopathy with macular edema; Z90.710 Acquired absence of both cervix and uterus; Z79.4 Long term (current) use of insulin
CPT/HCPCS: J2405; J7120

== ENCOUNTER 2020-09-14 13:00 | Outpatient (RCR) | payer MEDICARE, BC ==
[2005-09-04 11:41] VITALS: BP 111/65
[2020-09-14] VITALS (13 sets, daily range): BP systolic 107–124; BP diastolic 39–67; PULSE 86–97; TEMP 98.2–99.2
[~2020-09-14] VITALS: Ht 165.1 cm; Wt 65.9 kg
[~2020-09-14 13:00] MED LIST changes: +DIFLUCAN150 MG PO
--- NOTE | 2020-09-14 15:18 | NUR ---
PT TOOK HER BENADRYL AT HOME AROUND 12:15PM AND SHE TOOK HER NORCO FROM HOME AT 1445 BEFORE THE TRANSFUSION.
--- NOTE | 2020-09-14 20:14 | NUR ---
[facility] MANAGER OF ENGINEERING PT AND TRANSPORT TO [facility].
[2021-02-06] MEDS ORDERED: FLEXERIL 1010 MG/TAB PO (09:36)
== END 2020-09-14 20:15 ==
LOC: EUO 13:00 → EDSTATUS 13:00 → EUO 20:15
DX: C50.411 Malignant neoplasm of upper-outer quadrant of right female breast (principal); C79.51 Secondary malignant neoplasm of bone; D64.81 Anemia due to antineoplastic chemotherapy
CPT/HCPCS: J7050; P9040

== ENCOUNTER 2020-11-23 14:28 | Outpatient (RCR) | payer MEDICARE, BC ==
[2005-09-04 11:41] VITALS: BP 111/65
[2020-11-23] VITALS (10 sets, daily range): BP systolic 120–142; BP diastolic 55–88; PULSE 72–92; TEMP 98.5–98.9
[2021-02-06] MEDS ORDERED: FLEXERIL 1010 MG/TAB PO (09:36)
== END 2020-11-23 19:33 | disposition home or self-care (01) ==
LOC: EUO 14:28
DX: C50.411 Malignant neoplasm of upper-outer quadrant of right female breast (principal)
CPT/HCPCS: J1644; J7050; P9016

== ENCOUNTER 2021-02-02 10:56 | Outpatient (RCR) | payer MEDICARE, BC ==
[2005-09-04 11:41] VITALS: BP 111/65
[2021-02-02] VITALS (9 sets, daily range): BP systolic 111–135; BP diastolic 55–91; PULSE 72–110; TEMP 98–98.8
--- NOTE | 2021-02-02 17:05 | NUR ---
Report to Daniele Brooke.
--- NOTE | 2021-02-02 18:40 | NUR ---
PT TOLERATED TRANSFUSIONS WITH NO ADVERSE OR ALLERGIC REACTION. HER RIDE FROM [facility] JUST ARRIVED, AND SHE DROVE HER MOTORIZED WHEELCHAIR TO EXIT. NO CONCERNS AT TIME OF DEPARTURE.
[2021-02-06] MEDS ORDERED: FLEXERIL 1010 MG/TAB PO (09:36)
== END 2021-02-02 18:41 | disposition home or self-care (01) ==
LOC: EUO 10:56
DX: C50.411 Malignant neoplasm of upper-outer quadrant of right female breast (principal); D64.81 Anemia due to antineoplastic chemotherapy
CPT/HCPCS: J1644; J7050; P9016

== ENCOUNTER 2021-02-06 09:37 | Day surgery (SDC) | payer MEDICARE, BC ==
[2005-09-04 11:41] VITALS: BP 111/65
[~2021-02-06] VITALS: Ht 165.1 cm; Wt 61.0 kg
[2021-02-06] VITALS (7 sets, daily range): BP systolic 121–129; BP diastolic 46–59; PULSE 75–84; TEMP 97.7–98.6
--- NOTE | 2021-02-06 09:30 | NUR ---
Patient's central line accessed by KAREL Stevenson.
[2021-02-06] MEDS ORDERED: DOMPERIDONE PO (09:38)
[2021-02-06 09:39] LABS: HEMOGLOBIN 10.4 g/dl (12.5-16.0); MEAN CELL VOLUME 96 fl (80.0-100.0); MEAN CORPUSCULAR HEMOGLOBIN 30 pg (27.0-31.0); MEAN CORPUSCULAR HGB CONC 32 g/dl (33.0-37.0); MEAN PLATELET VOLUME 10.4 fl (7.4-10.4); RED BLOOD COUNT 3.44 M/mm3 (4.10-5.30); REDCELL DISTRIBUTION WIDTH-CV 16.7 % (11.5-14.5)
[2021-02-06] MEDS ORDERED: CIPRO 500MG TA500 MG PO (09:39)
[2021-02-06] MEDS ORDERED: MACROBID 1100 MG/CAP PO (09:39)
[2021-02-06] MEDS ORDERED: AFINITOR5 MG PO (09:39)
[2021-02-06 09:45] LABS: HEMATOCRIT 32.9 % (37.0-47.0)
[2021-02-06 09:46] LABS: PLATELET COUNT 42 K/mm3 (130-400)
--- NOTE | 2021-02-06 09:48 | NUR ---
RECIEVED NOTIFICATION FROM LAB OF CRITICALLY LOW WHITE BLOOD CELL COUNT OF 1.1, RESULTS RELAYED TO DR. VILLASEÑOR.
--- NOTE | 2021-02-06 11:30 | NUR ---
Patient having little to no discomfort to left hip. Tolerated Diet Pepsi and sugar-free jello with no nausea or vomiting. Went through discharge instructions with patient. Patient verbalized understanding to education.
--- NOTE | 2021-02-06 11:45 | NUR ---
Called [facility] center to varifiy that patient has heparin locked port-a-cath despite the heparin allergy. Nurse confirmed that patient has port-a-cath that is heparin locked. Patient also confirmed that her port is heparin locked.
[2021-02-06 11:47] LABS: ANISOCYTOSIS 1+; BAND 8 % (0-10); BASOPHIL 4 % (0-2); EOSINOPHIL 5 % (0-4); HYPOCHROMIA 1+; NEUTROPHILS 39 % (42.0-75.2); PLATELET ESTIMATE DECREASED (NORMAL)
[2021-02-06 11:48] LABS: LYMPHOCYTE 32 % (20.0-51.0)
--- NOTE | 2021-02-06 12:00 | NUR ---
Patient's central line deaccessed and heparin locked per protocol.
--- NOTE | 2021-02-06 12:10 | NUR ---
Patient escorted to patient entrace via motorized wheelchair. [facility] transportation, [facility], arrived to transport patient back home.
== END 2021-02-06 12:10 | disposition home or self-care (01) ==
LOC: SDCO 09:37
PROVIDERS: Pathology Anatomic Pathology & Clinical Pathology
DX: C96.9 Malignant neoplasm of lymphoid, hematopoietic and related tissue, unspecified (principal); C79.89 Secondary malignant neoplasm of other specified sites; D61.818 Other pancytopenia; D64.9 Anemia, unspecified
CPT/HCPCS: J1644; J2704; J7120

== ENCOUNTER → 2021-02-08 | Outpatient (CLI) | payer MEDICARE, BC ==
[~2021-02-08] MED LIST changes: +AFINITOR5 MG PO
== END ==
LOC: COL.VAS 08:50
DX: M79.89 Other specified soft tissue disorders (principal)

== ENCOUNTER → 2021-03-06 | Outpatient (CLI) | payer MEDICARE, BC | LOC: COL.VAS 09:00 | DX: R60.0 Localized edema (principal) ==

== ENCOUNTER 2021-03-29 13:00 | Outpatient (RCR) | payer MEDICARE, BC ==
[2005-09-04 11:41] VITALS: BP 111/65
[2021-03-29] VITALS (9 sets, daily range): BP systolic 112–151; BP diastolic 38–85; PULSE 65–91; TEMP 98.5–99.1
[~2021-03-29] VITALS: Ht 165.1 cm; Wt 62.5 kg
== END 2021-03-29 19:50 | disposition home or self-care (01) ==
LOC: EUO 13:00
DX: C50.411 Malignant neoplasm of upper-outer quadrant of right female breast (principal); D64.81 Anemia due to antineoplastic chemotherapy
CPT/HCPCS: J1644; J7050; P9040

== ENCOUNTER 2021-04-26 12:54 | Outpatient (RCR) | payer MEDICARE, BC ==
[2021-04-26] VITALS (8 sets, daily range): BP systolic 107–130; BP diastolic 46–626; PULSE 69–92; TEMP 98.2–98.8
--- NOTE | 2021-04-26 17:18 | NUR ---
report to Daniele Meneses.
== END 2021-04-26 18:32 ==
LOC: EUO 12:54
DX: C50.411 Malignant neoplasm of upper-outer quadrant of right female breast (principal); D64.81 Anemia due to antineoplastic chemotherapy; Z95.9 Presence of cardiac and vascular implant and graft, unspecified
CPT/HCPCS: J1644; J7050; P9040

== ENCOUNTER 2021-07-27 13:15 | Outpatient (RCR) | payer MEDICARE, BC ==
[2005-09-04 11:41] VITALS: BP 111/65
[2021-07-27] VITALS (8 sets, daily range): BP systolic 102–121; BP diastolic 41–62; PULSE 72–76; TEMP 97.9–98.8
[~2021-07-27] VITALS: Ht 165.1 cm; Wt 63.4 kg
--- NOTE | 2021-07-27 18:57 | NUR ---
Liza RN now taking care of pt. Port site CDI, pt sitting in bed with HOB 45 degrees, bed low and locked, call light near. Pt reports no pain or needs at this time.
== END 2021-07-27 19:12 ==
LOC: EUO 13:15
DX: C50.411 Malignant neoplasm of upper-outer quadrant of right female breast (principal); D64.81 Anemia due to antineoplastic chemotherapy
CPT/HCPCS: J1644; J7050; P9040

== ENCOUNTER 2021-09-01 13:00 | Outpatient (RCR) | payer MEDICARE, BC ==
[2005-09-04 11:41] VITALS: BP 111/65
[2021-09-01] VITALS (9 sets, daily range): BP systolic 126–155; BP diastolic 46–83; PULSE 80–91; TEMP 98.1–98.7
--- NOTE | 2021-09-01 16:43 | NUR ---
Report to Daniele Brooke.
== END 2021-09-01 19:21 | disposition home or self-care (01) ==
LOC: EUO 13:00
DX: D64.81 Anemia due to antineoplastic chemotherapy (principal)
CPT/HCPCS: J1644; J7050; P9040

== ENCOUNTER 2021-12-20 08:14 | Outpatient (RCR) | payer MEDICARE, BC ==
[2005-09-04 11:41] VITALS: BP 111/65
[~2021-12-20] VITALS: Ht 165.1 cm; Wt 62.0 kg
[2021-12-20] VITALS (10 sets, daily range): BP systolic 105–136; BP diastolic 38–75; PULSE 70–89; TEMP 97.9–98.9
[~2021-12-20 08:14] MED LIST changes: +ADDERALL10 MG PO; +PROTONIX 40MG T40 MG PO; +ROXICODONE 55 MG/TAB PO
--- NOTE | 2021-12-20 13:45 | NUR ---
PORT FLUSHED PER PROTOCOL. PT CALLED FOR RIDE AT [facility] AND DISCHARGED VIA MOTORIZED W/C
== END 2021-12-20 13:45 ==
LOC: EUO 08:14
DX: C50.411 Malignant neoplasm of upper-outer quadrant of right female breast (principal)
CPT/HCPCS: J1644; J7050; P9040

== ENCOUNTER 2022-01-17 13:00 | Outpatient (RCR) | payer MEDICARE, BC ==
[2005-09-04 11:41] VITALS: BP 111/65
[2022-01-17] VITALS (10 sets, daily range): BP systolic 98–111; BP diastolic 47–55; PULSE 78–87; TEMP 98.2–98.7
[~2022-01-17] VITALS: Ht 165.1 cm; Wt 57.9 kg
[~2022-01-17 13:00] MED LIST changes: +ADDERALL XR20 MG PO; +CLEOCIN HC150 MG/CAP PO; -MULTIPLE VITAMI1 CAP PO; +MULTIPLE VITAMI1 TA5 PO
--- NOTE | 2022-01-17 16:49 | NUR ---
Report taken from KAREL Brooke.
== END 2022-01-17 17:37 ==
LOC: EUO 13:00 → EDSTATUS 13:00 → EUO 17:37
DX: C50.411 Malignant neoplasm of upper-outer quadrant of right female breast (principal)
CPT/HCPCS: J1644; J7050; P9040

== ENCOUNTER 2022-06-06 16:16 | Outpatient (RCR) | payer MEDICARE, BC ==
[2005-09-04 11:41] VITALS: BP 111/65
[2022-06-06] VITALS (10 sets, daily range): BP systolic 99–136; BP diastolic 46–92; PULSE 82–92; TEMP 98.5–99.2
[~2022-06-06] VITALS: Ht 165.1 cm; Wt 57.8 kg
== END 2022-06-06 19:20 | disposition home or self-care (01) ==
LOC: EUO 16:16
DX: C50.411 Malignant neoplasm of upper-outer quadrant of right female breast (principal)
CPT/HCPCS: J1644; J7050; P9040

== ENCOUNTER 2022-07-12 08:49 | Outpatient (RCR) | payer MEDICARE, BC ==
[2005-09-04 11:41] VITALS: BP 111/65
[2022-07-12] VITALS (10 sets, daily range): BP systolic 111–134; BP diastolic 46–60; PULSE 75–89; TEMP 98–98.4
[~2022-07-12] VITALS: Ht 165.1 cm; Wt 55.0 kg
== END 2022-07-12 15:33 ==
LOC: EUO 08:49
DX: C50.411 Malignant neoplasm of upper-outer quadrant of right female breast (principal)
CPT/HCPCS: J1644; J7050; P9040

== ENCOUNTER → 2022-08-24 | Outpatient (CLI) | payer MEDICARE, BC ==
[~2022-08-24] MED LIST changes: +CLEOCIN HCL300 MG PO; +SENEXON-S 50-81 EACH PO
== END ==
LOC: COL.RAD 10:41
DX: C50.419 Malignant neoplasm of upper-outer quadrant of unspecified female breast (principal); R68.84 Jaw pain
CPT/HCPCS: J1644; Q9967

== ENCOUNTER → 2023-01-14 | Outpatient (CLI) | payer MEDICARE, BC ==
[2023-01-14 16:50] LABS: BASO % 0.3 % (0.0-2.0); EOS # 0.1 K/mm3 (0.0-0.7); EOS % 1.7 % (0.0-4.0); GRAN # 2.2 K/mm3 (1.4-6.5); GRAN % 62.5 % (42.2-75.2); LYMPH % 28.6 % (20.0-51.0); MEAN CELL VOLUME 86 fl (80.0-100.0); MEAN CORPUSCULAR HGB CONC 27 g/dl (33.0-37.0); MEAN PLATELET VOLUME 10.2 fl (7.4-10.4); MONO # 0.2 K/mm3 (0.1-0.6); MONO % 6.6 % (1.7-9.3); PLATELET COUNT 87 K/mm3 (130-400); RED BLOOD COUNT 3.51 M/mm3 (4.10-5.30)
[2023-01-14 16:51] LABS: HEMATOCRIT 30.3 % (37.0-47.0); HEMOGLOBIN 8.3 g/dl (12.5-16.0); MEAN CORPUSCULAR HEMOGLOBIN 24 pg (27-31)
== END ==
LOC: ZCOL.LAB 16:12
PROVIDERS: Internal Medicine
DX: C50.411 Malignant neoplasm of upper-outer quadrant of right female breast (principal)